=== PATIENT | female | born 1995 | race Caucasian/White ===

== ENCOUNTER 2016-10-04 18:45 | Emergency (ER) | payer BC ==
[2016-10-04 19:09] VITALS: BP 105/78
[2016-10-04] MEDS ORDERED: Albuterol HFA INHALER* 8 gm MDI INH ONE (19:21)
--- NOTE | 2016-10-04 19:26 | UC ---
Respiratory Complaint HPI - History of Current Complaint Chief Complaint: UCGeneralIllness Stated Complaint: THROAT/COUGH Time Seen by Provider: 10/04/16 19:08 Hx Last Menstrual Period: 07/2016-denies being - Allergies/Home Medications Allergies/Adverse Reactions: Allergies Allergy/AdvReac Type Severity Reaction Status Date / Time No Known Allergies Allergy Verified 10/04/16 19:03 Home Medications: Home Medications Escitalopram (NF) [Lexapro 20 mg (NF)] 20 mg PO DAILY 10/04/16 [History Confirmed 10/04/16] PMH/Surg Hx/FS Hx/Imm Hx Previously Healthy: Yes - Surgical History Surgical History: None - Family History Known Family History: Positive: Diabetes - Social History Alcohol Use: Occasionally Substance Use Type: None Smoking Status (MU): Never Smoked Tobacco Review of Systems Constitutional: Negative Skin: Negative Eyes: Negative ENT: Sore Throat, Ear Ache, Nasal Discharge, Sinus Congestion Respiratory: Shortness Of Breath, Cough Cardiovascular: Negative Gastrointestinal: Negative Genitourinary: Negative Motor: Negative Neurovascular: Negative Musculoskeletal: Negative Neurological: Negative Psychological: Negative All Other Systems Reviewed And Are Negative: Yes Physical Exam Triage Information Reviewed: Yes Appearance: Well-Nourished, Ill-Appearing, Pain Distress Vital Signs: Initial Vital Signs Temp 97.9 F 10/04/16 18:56 Pulse 85 10/04/16 18:56 Resp 16 10/04/16 18:56 BP 105/78 10/04/16 18:56 Pulse Ox 97 10/04/16 18:56 Vital Signs Reviewed: Yes Eye Exam: Normal ENT: Positive: Pharyngeal erythema, TM bulging Dental Exam: Normal Neck exam: Normal Respiratory: Positive: Chest non-tender, No respiratory distress, No accessory muscle use, Wheezing, Inspiration Cardiovascular Exam: Normal Cardiovascular: Positive: RRR, No Murmur, Pulses Normal Abdominal Exam: Normal Abdomen Description: Positive: Nontender, No Organomegaly, Soft Bowel Sounds: Positive: Present Musculoskeletal Exam: Normal Musculoskeletal: Positive: Strength Intact, ROM Intact, No Edema Neurological Exam: Normal Neurological: Positive: Alert, Muscle Tone Normal Psychological Exam: Normal Skin Exam: Normal UC Diagnostic Evaluation - Laboratory O2 Sat by Pulse Oximetry: 97 Respiratory Course/Dx - Course Course Of Treatment: hx obtained, exam performed ,meds reviewed, treated for rhinosinusitis and bronchospasm - Differential Dx/Diagnosis Differential Diagnosis/HQI/PQRI: Asthma, Bronchitis, Exacerbation Of COPD, Laryngitis, Sinusitis Provider Diagnoses: sinusitis. bronchospasm Discharge - Discharge Plan Condition: Stable Disposition: HOME Prescriptions: predniSONE TAB* [Deltasone TAB*] 40 mg PO DAILY #14 tab Patient Education Materials: Bronchospasm (ED) Additional Instructions: 1. take the medication as prescribed. 2. increase fluid intake and get plenty of rest 3. Follow up with any increase in symptoms
== END 2016-10-04 19:36 | disposition home or self-care (01) ==
LOC: UCCORT 18:45
DX: J32.9 Chronic sinusitis, unspecified (principal); J98.01 Acute bronchospasm
CPT/HCPCS: 99212; A9270-GY; G0463

== ENCOUNTER 2017-03-11 14:41 | Emergency (ER) | payer BC ==
[2017-03-11 15:27] VITALS: BP 125/76
--- NOTE | 2017-03-11 15:41 | UC ---
Throat Pain/Nasal David HPI - HPI Summary HPI Summary: 21 YEAR OLD FEMALE PRESENTS WITH COMPLAINS SORE THROAT AND COUGH. - History of Current Complaint Chief Complaint: UCGeneralIllness Stated Complaint: SORE THROAT Time Seen by Provider: 03/11/17 15:41 Hx Obtained From: Patient Hx Last Menstrual Period: 3 WEEKS AGO Onset/Duration: Sudden Onset Severity: Moderate Cough: Nonproductive Associated Signs & Symptoms: Positive: Dysphagia - Allergies/Home Medications Allergies/Adverse Reactions: Allergies Allergy/AdvReac Type Severity Reaction Status Date / Time No Known Allergies Allergy Verified 03/11/17 15:26 PMH/Surg Hx/FS Hx/Imm Hx Previously Healthy: Yes - Surgical History Surgical History: None - Family History Known Family History: Positive: Diabetes - Social History Alcohol Use: Occasionally Substance Use Type: None Smoking Status (MU): Never Smoked Tobacco - Immunization History Most Recent Influenza Vaccination: NOT CURRENT Review of Systems Constitutional: Negative Skin: Negative Eyes: Negative ENT: Sore Throat, Nasal Discharge, Sinus Congestion, Sinus Pain/Tenderness Respiratory: Negative Cardiovascular: Negative Gastrointestinal: Negative Genitourinary: Negative Motor: Negative Neurovascular: Negative Musculoskeletal: Negative Neurological: Negative Psychological: Negative All Other Systems Reviewed And Are Negative: Yes Physical Exam Triage Information Reviewed: Yes Vital Signs: Initial Vital Signs Temp 36.3 C 03/11/17 15:23 Pulse 87 03/11/17 15:23 Resp 18 03/11/17 15:23 BP 125/76 03/11/17 15:23 Pulse Ox 97 03/11/17 15:23 Vital Signs Reviewed: Yes Eye Exam: Normal ENT: Positive: Nasal congestion, Nasal drainage Dental Exam: Normal Neck exam: Normal Neck: Positive: 1 Respiratory Exam: Normal Cardiovascular Exam: Normal Abdominal Exam: Normal Musculoskeletal Exam: Normal Neurological Exam: Normal Psychological Exam: Normal Skin Exam: Normal Throat Pain/Nasal Course/Dx - Differential Dx/Diagnosis Provider Diagnoses: PHARYNGITIS. COUGH Discharge - Discharge Plan Condition: Stable Disposition: HOME Prescriptions: Amoxicillin PO (*) [Amoxicillin 500 MG CAP*] 500 mg PO TID #30 cap LoraTADine TAB(NF) [Claritin 10 MG TAB(NF)] 10 mg PO DAILY #30 tab Magic M W2 Taj/Maal/Nyst/Lido* 5 ml SWISH SPIT QID PRN #120 ml PRN Reason: Pain Methylprednisolone [Medrol Dosepak 4 MG*] 4 mg PO .SEE SELENA INSTRUCTION #21 tab Patient Education Materials: Pharyngitis (ED) Referrals: Hector Moses DO [Primary Care Provider] -
== END 2017-03-11 15:59 | disposition home or self-care (01) ==
LOC: UCCORT 14:41
DX: J02.9 Acute pharyngitis, unspecified (principal); R05 Cough
CPT/HCPCS: 87651; 99212; G0463

== ENCOUNTER 2017-07-04 11:53 | Emergency (ER) | payer BC ==
[2017-07-04 12:06] VITALS: BP 137/90
[2017-07-04] MEDS ORDERED: Ibuprofen TAB* 600 MG PO ONE (12:15)
--- NOTE | 2017-07-04 12:24 | UC ---
Lower Extremity/Ankle HPI - HPI Summary HPI Summary: 21 year old female with ankle pain. right ankle last night at 11 pm , missed last step fell on concrete. Ankle bent behind her. Bruised on outside of ankle and along arch. Denies LOC or hitting head, fell on wrists. Denies injury to wrist or hands. fell 2 steps and did not his head. [ End ] - History of Current Complaint Chief Complaint: UCLowerExtremity Stated Complaint: ANKLE INJURY Time Seen by Provider: 07/04/17 12:07 Hx Obtained From: Patient Hx Last Menstrual Period: 05/18/17 has PCOS cycle varies Onset/Duration: Sudden Onset Severity Initially: Moderate Severity Currently: Severe Pain Intensity: 10 Aggravating Factor(s): Standing Alleviating Factor(s): Rest Able to Bear Weight: Yes - Allergies/Home Medications Allergies/Adverse Reactions: Allergies Allergy/AdvReac Type Severity Reaction Status Date / Time No Known Allergies Allergy Verified 07/04/17 12:06 PMH/Surg Hx/FS Hx/Imm Hx Previously Healthy: Yes - Surgical History Surgical History: None Surgery Procedure, Year, and Place: denies - Family History Known Family History: Positive: Diabetes - Social History Lives: Dormitory/Roommates Alcohol Use: Occasionally Substance Use Type: None Smoking Status (MU): Light Every Day Tobacco Smoker Length of Time of Smoking/Using Tobacco: 1 year Have You Smoked in the Last Year: Yes - Immunization History Most Recent Influenza Vaccination: NOT CURRENT Review of Systems Musculoskeletal: Arthralgia, Decreased ROM Is Patient Immunocompromised?: No All Other Systems Reviewed And Are Negative: Yes Physical Exam Triage Information Reviewed: Yes Appearance: Well-Appearing, Pain Distress - mild Vital Signs: Initial Vital Signs Temp 97.9 F 07/04/17 12:00 Pulse 98 07/04/17 12:00 Resp 18 07/04/17 12:00 BP 137/90 07/04/17 12:00 Pulse Ox 99 07/04/17 12:00 Vital Signs Reviewed: Yes Eye Exam: Normal Respiratory Exam: Normal Cardiovascular Exam: Normal Musculoskeletal: Positive: Strength Limited @, ROM Limited @, Edema @ - right ankle mild swelling and moderate tenderness to palpation medial/lateral malleolus and forefoot. mild abrasion lateral ankle that is superficial. cap refill < 3 sec. brisk pulses dorsalis pedis. no ecchymosis Lower Extremity Course/Dx - Course Course Of Treatment: neg xray. gel splint. no work for a few days. showed her exercses to start today or tomorrow - Differential Dx/Diagnosis Differential Diagnosis/HQI/PQRI: Fracture (Closed), Sprain, Strain Provider Diagnoses: right ankle sprain Discharge - Sign-Out/Discharge Documenting (check all that apply): Discharge/Admit/Transfer - Discharge Plan Condition: Good Disposition: HOME Patient Education Materials: Ankle Sprain (ED) Forms: *Work Release Referrals: Hector Moses DO [Primary Care Provider] - 3 Days Additional Instructions: your xray shows no fracture / broken bones today . - Billing Disposition and Condition Condition: GOOD Disposition: HOME
--- NOTE | 2017-07-04 12:45 | RAD ---
Indication: Dorsal RIGHT foot and plantar arch pain post fall. Comparison: No relevant prior exams available on the [facility] PACS for comparison. Technique: AP and lateral views RIGHT foot. AP, mortise, lateral, and oblique views of the RIGHT ankle. Report: Negative for fracture or malalignment at the ankle or foot. Small bone island at the caudal margin of the lateral malleolus without concern. Os tibiale externum accessory ossicle. Unremarkable soft tissue contours. IMPRESSION: Negative radiographic exam of the RIGHT ankle and foot.
--- NOTE | 2017-07-04 12:45 | RAD ---
Indication: Dorsal RIGHT foot and plantar arch pain post fall. Comparison: No relevant prior exams available on the [facility] [place] for [place]. Technique: AP and lateral views RIGHT foot. AP, mortise, lateral, and oblique views of the RIGHT ankle. Report: Negative for fracture or malalignment at the ankle or foot. Small bone island at the caudal margin of the lateral malleolus without concern. Os tibiale externum accessory ossicle. Unremarkable soft tissue contours. IMPRESSION: Negative radiographic exam of the RIGHT ankle and foot.
== END 2017-07-04 13:00 | disposition home or self-care (01) ==
LOC: UCEAST 11:53
DX: S93.401A Sprain of unspecified ligament of right ankle, initial encounter (principal); S90.511A Abrasion, right ankle, initial encounter; W10.9XXA Fall (on) (from) unspecified stairs and steps, initial encounter; Y93.9 Activity, unspecified; Y92.9 Unspecified place or not applicable; F17.210 Nicotine dependence, cigarettes, uncomplicated
CPT/HCPCS: 99213; A9270-GY; G0463

== ENCOUNTER 2018-04-07 21:58 | Emergency (ER) | payer BC ==
[2018-04-07] MEDS ORDERED: Ondansetron ODT TAB* 4 MG PO ONE (22:21)
--- NOTE | 2018-04-07 22:22 | ED ---
Influenza-Like Illness - HPI Summary HPI Summary: 22-year-old female presents with generalized muscle aches and cough for the past days. She admits to sore throat. Admits to sinus congestion and a headache. She admits to generalized muscle aches. She notes nausea but denies any vomiting or diarrhea. states she has felt weak. Denies any urinary symptoms. States she has history of strep. States it felt like strep initally and then she developed a muscle aches. No one else is sick. Has no medical conditions. - History of Current Complaint Chief Complaint: EDFluSymptoms Time Seen by Provider: 04/07/18 22:17 - Allergy/Home Medications Allergies/Adverse Reactions: Allergies Allergy/AdvReac Type Severity Reaction Status Date / Time No Known Allergies Allergy Verified 04/07/18 22:25 PMH/Surg Hx/FS Hx/Imm Hx Endocrine/Hematology History: Denies: Hx Diabetes, Hx Thyroid Disease Cardiovascular History: Denies: Hx Hypertension, Hx Pacemaker/ICD Respiratory History: Denies: Hx Asthma, Hx Chronic Obstructive Pulmonary Disease (COPD) GI History: Denies: Hx Ulcer History: Denies: Hx Renal Disease Sensory History: Denies: Hx Hearing Aid Psychiatric History: Denies: Hx Panic Disorder - Surgical History Surgery Procedure, Year, and Place: denies Infectious Disease History: No Infectious Disease History: Denies: Hx Hepatitis, Hx Human Immunodeficiency Virus (HIV), Traveled Outside the [place] in Last 30 Days - Family History Known Family History: Positive: Diabetes - Social History Alcohol Use: Occasionally Substance Use Type: Reports: None Smoking Status (MU): Light Every Day Tobacco Smoker Length of Time of Smoking/Using Tobacco: 1 year Have You Smoked in the Last Year: Yes Review of Systems Negative: Fever Positive: Sore Throat, Nasal Discharge Negative: Chest Pain Positive: Cough. Negative: Shortness Of Breath Positive: Abdominal Pain, Nausea. Negative: Vomiting, Diarrhea Positive: Myalgia - generalized Positive: Headache All Other Systems Reviewed And Are Negative: Yes Physical Exam Triage Information Reviewed: Yes Vital Signs On Initial Exam: Initial Vitals Temp Pulse Resp BP Pulse Ox 96.5 F 93 16 153/92 96 04/07/18 22:05 04/07/18 22:05 04/07/18 22:05 04/07/18 22:05 04/07/18 22:05 Vital Signs Reviewed: Yes Appearance: Positive: Well-Appearing Skin: Positive: Warm, Dry Head/Face: Positive: Normal Head/Face Inspection Eyes: Positive: Normal, EOMI, GERALD, Conjunctiva Clear ENT: Positive: Pharyngeal erythema, TMs normal, Uvula midline, Other - soft palate symmetric. Negative: Tonsillar swelling, Tonsillar exudate, Trismus, Muffled voice Respiratory/Lung Sounds: Positive: Clear to Auscultation, Breath Sounds Present Cardiovascular: Positive: Normal, RRR Abdomen Description: Positive: Nontender, Soft Bowel Sounds: Positive: Present Musculoskeletal: Positive: Normal Neurological: Positive: Normal Psychiatric: Positive: Normal Diagnostics - Vital Signs Vital Signs Temp Pulse Resp BP Pulse Ox 04/07/18 22:05 96.5 F 93 16 153/92 96 - Laboratory Lab Statement: Any lab studies that have been ordered have been reviewed, and results considered in the medical decision making process. Flu Symptom Course/Dx - Course Course Of Treatment: 22-year-old female presents with generalized muscle aches and cough for the past days. She admits to sore throat. Admits to sinus congestion and a headache. She admits to generalized muscle aches. She notes nausea but denies any vomiting or diarrhea. states she has felt weak. Denies any urinary symptoms. States she has history of strep. States it felt like strep initally and then she developed a muscle aches. No one else is sick. Has no medical conditions. On exam pharynx erythematous. Uvula midline. Lungs clear to auscultation. Strep negative. Flu negative. explained likely viral and will treat supporatively. Patient understands agrees with plan. - Diagnoses Differential Diagnosis/HQI/PQRI: Positive: Influenza, Pneumonia, Upper Respiratory Infection Provider Diagnoses: Upper respiratory infection Discharge - Sign-Out/Discharge Documenting (check all that apply): Patient Departure Patient Received Moderate/Deep Sedation with Procedure: No - Discharge Plan Condition: Good Disposition: HOME Patient Education Materials: Upper Respiratory Infection (ED) Forms: *Work Release Referrals: Hector Moses DO [Primary Care Provider] - Additional Instructions: Take Tylenol or ibuprofen for pain every 6 hours Use saline spray in nose as much as needed for nasal congestion Can gargle salt water Can use cough drops or products such as cloraseptic spray Return to ED if develop any new or worsening symptoms - Billing Disposition and Condition Condition: GOOD Disposition: Home
[2018-04-07 22:58] LABS: Influenza A Molecular NEGATIVE (Negative); Influenza B Molecular NEGATIVE (Negative)
[2018-04-07 23:15] VITALS: BP 136/85
== END 2018-04-07 23:14 | disposition home or self-care (01) ==
LOC: ED 21:58
DX: J06.9 Acute upper respiratory infection, unspecified (principal); F17.200 Nicotine dependence, unspecified, uncomplicated
CPT/HCPCS: 87651; 99282; A9270-GY

== ENCOUNTER 2018-06-12 11:12 | Emergency (ER) | payer BC ==
--- OUTSIDE RECORDS SUMMARY | 2018-06-12 11:16 | XMS REPORT | Continuity of Care Document ---
:1995 External Reference #:[id number] Author Name Hector Moses D.O. Address [address] [place] [id number] Care Team Providers Name Role Phone HCP given Primary Care Physician Unavailable Payers Date Identification Numbers Payment Provider Subscriber Effective: 2012 Policy Number: [id number] [employer] Ind/Ppo/Hmo/Pos [employer]if [employer] Name: [address] [id number] PayID: [id number] [place] [address] Advance Directives Description No Information Available Problems Date Description Provider Status Onset: 10/26/2014 Acne Hector Moses D.O. 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 Active Onset: 06/10/2016 Malaise and fatigue Hector Moses D.O. Active Onset: 11/27/2017 Generalized anxiety disorder Hector Moses D.O. Active Family History Date Family Member(s) Observation Comments Siblings 3 1 brother and 2 sisters Social History Type Date Description Comments Sex Unknown Education Highest level completed, 12th grade Work Status Currently Working Tobacco Use Start: Unknown current cigarette 1 pack per week smoker Smoking Status Reviewed: 05/13/18 current cigarette 1 pack per week smoker ETOH Use Rarely consumes alcohol Tobacco Use Start: Unknown Patient is a current currently 2cig/day smoker, smokes every day Recreational Drug Use Cannabis Exercise Type/Frequency Exercises sporadically Sun Exposure Uses sunscreen Seat Belt/Car Seat Yes Contraceptive Methods None # Partners in a Lifetime none Allergies, Adverse Reactions, Alerts Description No Known Drug Allergies Medications Medication Date Status Form Strength Qnty SIG Indications Ordering Provider Cetirizine HCL 05/13/ Active Tablets 10mg 90tabs 1 by mouth L50.1 Aurelia, 2019 every day Olivia Young Aripiprazole 05/13/ Active Tablets 2mg 90tabs 1 by mouth F33.3 Aurelia, 2019 every day Sophia YoungOGarcia Amitriptyline 04/15/ Active Tablets 10mg 90tabs 1 by mouth F41.1 Aurelia, HCL 2019 every night Hector, at bedtime D.O. Prazosin HCL 11/27/ Active Capsules 1mg 30caps 1 by mouth F51.5 Aurelia 2017 at bed time Hector, to help with D.OGarcia nightmares Buspirone HCL 07/10/ Active Tablets 15mg 270tab take 1 F43.23 Aurelia 2016 s tablet by Hector mouth three D.O. times daily for anxiety F41.1 Escitalopram 04/24/2016 Active Tablets 20mg 90tabs 1 by mouth F43.23 Aurelia, every day Olivia Young F41.1 Melatonin 02/25 Hx Capsules 1mg 90ca 1 tab 1 hour prior G47. Aurelia ps to sleep. 26 Olivia Young - 05/12 Modafinil 02/25 Hx Tablets 200mg 14ta 1 by mouth 1 hour G47. Aurelia bs prior to overnight 26 Sophia YoungO. - shifts 03/15 Famotidine 04/13 Hx Tablets 40mg 60ta take 1 tablet by R12 Aurelia bs mouth 2 times per Choco Young.O. - day for 11/26 gastroesophageal reflux disease as needed Ondansetron HCL 11/05 Hx Tablets 4mg 14ta 1 by mouth three A09 Aurelia bs times a day as Choco Young.O. - needed for nausea 11/10 Vitamin D3 06/26 Hx Capsules 5000Un take on capsule by it mouth every day or 7 - tablets once a week 11/26 Cyclobenzaprine HCL 04/24 Hx Tablets 5mg 90ta 1 tab by mouth every M54. Aurelia bs night for back pain. 2 Kalani Young. - will make you drowsy 08/11 Prazosin HCL 04/24 Hx Capsules 1mg 30ca 1 by mouth at bed F51. Aurelia ps time to help with 5 Kalani Young. - nightmares 05/01 Magox 400 02/07 Hx Tablets 400(24 90ta 1 tablets every R51 [facility] 1.3mg) bs night at bedtime as Choco Young.O. - mg directed 04/03 Amitriptyline HCL 02/07 Hx Tablets 10mg 60ta 2 by mouth every F43. [facility] bs night at bedtime for 23 Sophia YoungO. - reduced freq 11/04 headaches and sleep Buspirone HCL 02/07 Hx Tablets 10mg 180t 1 by mouth two times F43. luis abs a day scheduled to 23 Choco Young.O. - reduce anxiety ok to 07/10 take a 3rd dose daily as needed for panic attack Escitalopram Oxalate 12/26 Hx Tablets 10mg 90ta 1 by mouth every day F43. Gus bs 23 Hector D.O. - 04/24 Clindamycin 12/26 Hx Gel 1-5% 150g use two times a day L70. Marcy Rodriguez-Benzoshelton m 0 FELIPA Alford - 05/27 Minocycline HCL 12/14 Hx Capsules 100mg 60ca 1 by mouth twice a L70. Michael ps day, may reduce to 0 FELIPA Alford once a day after 2-3 04/23 months if there is improvement Flagyl 12/07 Hx Tablets 500mg 14ta 1 tab po bid x7 days Michael bs FELIPA Alford - 12/14 Diflucan 12/04 Hx Tablets 150mg 1tab 1 tab by mouth once N76. Michael s 0 FELIPA Alford - 12/05 Adapalene 11/13 Hx Cream 0.1% 135g apply to affected L70. Michael m areas QHS 0 FELIPA Alford - 12/10 Minocycline HCL ER 11/13 Hx Tablets ER 90mg 90ta 1 tab po daily L70. Michael 24HR bs 0 FELIPA Alford - 12/14 Previfem 08/08 Hx Tablets 0.25-3 28ta take 1 tablet by Z30. luis 5mg-mc bs mouth daily for 28 09 Hector, D.O. - g days for 10/13 Cyclobenzaprine HCL 08/08 Hx Tablets 5mg 90ta 1 tab by mouth tid G44. pramod bs prn 209 FELIPA Alford - 03/12 Buspirone HCL 07/06 Hx Tablets 10mg 180t 1 by mouth two times F43. Aurelia abs a day 23 Hector, D.O. - 12/26 Vitamin D3 04/21 Hx Tablets 5000Un 90ta 1 tab by mouth every E55. luis it bs day or 7 tabs once a 9 Hector, D.O. - week 03/12 Vitamin B-12 04/21 Hx Tablets Sub 1000mc 270t 1 sl three times a E53. luis g abs day ok to change 8 Hector, D.O. - dose to 500mcg or 03/12 5000mcg based on availablility Buspirone HCL 03/31 Hx Tablets 7.5mg 180t 1 cap by mouth twice F41. Gus abs a day 9 Hectro, D.O. - 07/06 Doxycycline Hyclate 10/26 Hx Capsules 100mg 60ca 1 PO daily for 4 706. Aurelia ps months 1 Hector, D.O. - 02/23 No Active 03/29 Hx Unknown Medications /2014 - 03/29 Benzaclin With Pump 03/29 Hx Gel 1-5% 150g use two times a day L70. Aurelia m 0 Hector, D.O. - 12/26 Medications Administered in Office Medication Date Status Form Strength Qnty SIG Indications Ordering Provider TB Intradermal Administered Injection Parth Moses 014 Hector, D.O. Immunizations CPT Code Status Date Vaccine Lot # [id number] Given 11/27/2017 Influenza Virus Vaccine, Quadrivalent, Split, [id number] Preservative Free 87672 Given 03/20/2017 Influenza Virus Vaccine, Quadrivalent, Split, Preservative Free 58306 Given 04/24/2016 Gardasil 9 HPV vaccine; Nonavalent 3 [place] [id number] [place] [address] Given 11/14/2015 Gardasil 9 HPV vaccine; Nonavalent 3 Dose Schedule [id number] Im [address] Given 07/07/2015 Adacel or Boostrix, TDaP [id number] 92933 Given 07/07/2015 Gardasil 9 HPV vaccine; Nonavalent 3 Dose Schedule [id number] Im [address] Given 01/18/2014 Influenza Virus Vaccine, Quadrivalent, Split, [id number] Preservative Free 64275 Given 03/14/2013 Flu, Split Virus 3Yrs [id number] 65011 Given 07/25/2009 Menactra Menningitis Vaccine 80598 Given 10/29/1998 Poliomyelitis Immunization 82178 Given 10/29/1998 MMR Virus Immunization 95064 Given 10/29/1998 DTP Immunization 17753 Given 07/16/1995 MMR Virus Immunization 97837 Given 07/16/1995 Oral Poliovirus Immunization 93851 Given 07/16/1995 DTP-Hib (Tetramune) 01432 Given 07/29/1994 Hep B Immunization, Ped/Adolescent To 11 Yrs 61074 Given 05/05/1994 DTP Immunization 48373 Given 05/05/1994 Hib 4 Dose, Acthib 31494 Given 02/24/1994 Oral Poliovirus Immunization 51824 Given 02/24/1994 DTP Immunization 92124 Given 02/24/1994 Hib 4 Dose, Acthib 56837 Given 1993 Oral Poliovirus Immunization 11692 Given 1993 DTP Immunization 71148 Given 1993 Hib 4 Dose, Acthib 47890 Given 1993 Hep B Immunization, Ped/Adolescent To 11 Yrs 53783 Given 1993 Hep B Immunization, Ped/Adolescent To 11 Yrs Vital Signs Date Vital Result Comment 05/13/2018 2:47pm BP Systolic 132 mmHg BP Diastolic 76 mmHg Weight 247.00 lb 04/15/2018 1:35pm BP Systolic 124 mmHg BP Diastolic 80 mmHg Height 68 inches 5'8" Weight 252.00 lb BMI (Body Mass Index) 38.3 kg/m2 02/25/2018 8:36am BP Systolic 138 mmHg BP Diastolic 70 mmHg Weight 264.00 lb 11/27/2017 8:36am BP Systolic 143 mmHg BP Diastolic 66 mmHg Weight 261.00 lb 04/13/2017 11:08am BP Systolic 134 mmHg over sleeve BP Diastolic 82 mmHg over sleeve Height 68.75 inches 5'8.75" Weight 270.00 lb BMI (Body Mass Index) 40.2 kg/m2 12/18/2016 9:11am BP Systolic 128 mmHg BP Diastolic 80 mmHg Body Temperature 98.2 F Weight 265.00 lb 11/05/2016 4:44pm BP Systolic 128 mmHg BP Diastolic 75 mmHg Body Temperature 98.5 F Weight 265.00 lb 08/29/2016 3:05pm BP Systolic 132 mmHg BP Diastolic 72 mmHg Weight 265.00 lb 08/11/2016 12:56pm BP Systolic 132 mmHg BP Diastolic 80 mmHg Weight 263.00 lb 07/10/2016 9:36am BP Systolic 126 mmHg BP Diastolic 86 mmHg 06/10/2016 11:32am BP Systolic 120 mmHg BP Diastolic 80 mmHg Weight 260.00 lb per pt 04/24/2016 1:34pm BP Systolic 142 mmHg BP Diastolic 66 mmHg Weight 261.00 lb 03/13/2016 4:42pm BP Systolic 132 mmHg BP Diastolic 80 mmHg Weight 253.00 lb with sneakers 02/08/2016 4:34pm BP Systolic 130 mmHg BP Diastolic 80 mmHg Height 68 inches 5'8" Weight 247.00 lb BMI (Body Mass Index) 37.6 kg/m2 12/27/2015 4:03pm BP Systolic 138 mmHg BP Diastolic 72 mmHg 12/05/2015 5:13pm BP Systolic 118 mmHg BP Diastolic 70 mmHg 11/14/2015 1:20pm BP Systolic 124 mmHg BP Diastolic 72 mmHg Weight 239.00 lb 08/09/2015 4:32pm BP Systolic 124 mmHg BP Diastolic 76 mmHg Height 68 inches 5'8" Weight 244.00 lb BMI (Body Mass Index) 37.1 kg/m2 07/07/2015 8:52am BP Systolic 126 mmHg BP Diastolic 82 mmHg Height 68 inches 5'8" Weight 238.00 lb BMI (Body Mass Index) 36.2 kg/m2 04/21/2015 10:08am BP Systolic 136 mmHg BP Diastolic 70 mmHg Weight 232.00 lb 03/31/2015 9:49am BP Systolic 138 mmHg BP Diastolic 80 mmHg Weight 235.00 lb 10/26/2014 8:45am BP Systolic 120 mmHg BP Diastolic 60 mmHg Height 68 inches 5'8" 03/29/2014 1:25pm BP Systolic 110 mmHg BP Diastolic 60 mmHg Height 68 inches 5'8" Weight 223.00 lb BMI (Body Mass Index) 33.9 kg/m2 Results Test Date Facility Test Result H/L Range Note HIV 1/2 Ag/AB 04/15/2018 [facility] Hiv1/2 Ag/Ab Negative Negative 1 Screen,W/Reflex, [phone] Screen,w/Refle Plasma x,P Laboratory test 04/15/2018 [facility] Syphillis Igg <pending> finding [phone] W/Reflex RPR Laboratory test 04/15/2018 [facility] Hepatitis C <pending> finding [phone] Antibody Laboratory test 04/15/2018 [facility] TSH (Thyroid 0.61 mcIU/mL N 0.34-5.60 finding [phone] Stim Horm) Hemoglobin A1c (Glyco HGB) 5.2 % N 4.0-5.6 2 Magnesium 2.2 mg/dL N 1.9-2.7 Vitamin B12 608 pg/mL N 180-914 3 Comp Metabolic Panel 04/15/2018 [facility] Sodium 140 mmol/L N 135- 145 [phone] Potassium 3.9 mmol/L N 3.5-5.0 Chloride 102 mmol/L N 101-111 Co2 Carbon Dioxide 31 mmol/L N 22-32 Anion Gap 7 mmol/L N 2-11 Glucose 85 mg/dL N 70-100 Blood Urea Nitrogen 14 mg/dL N 6-24 Creatinine 1.02 mg/dL High 0.51-0.95 BUN/Creatinine Ratio 13.7 N 8-20 Calcium 9.7 mg/dL N 8.6-10.3 Total Protein 7.7 g/dL N 6.4-8.9 Albumin 4.2 g/dL N 3.2-5.2 Globulin 3.5 g/dL N 2-4 Albumin/Globulin Ratio 1.2 N 1-3 Total Bilirubin 0.50 mg/dL N 0.2-1.0 Alkaline Phosphatase 108 U/L High 34-104 Alt 27 U/L N 7-52 Ast 20 U/L N 13-39 Egfr Non- 66.6 >60 Egfr 80.6 >60 4 CBC Auto Diff 04/15/2018 [facility] White Blood Count 8.2 10^3/uL N 3.5-10.8 [phone] Red Blood Count 4.68 10^6/uL N 4.00-5.40 Hemoglobin 13.3 g/dL N 12.0-16.0 Hematocrit 40 % N 35-47 Mean Corpuscular Volume 85 fL N 80-97 Mean Corpuscular Hemoglobin 29 pg N 27-31 Mean Corpuscular HGB Conc 34 g/dL N 31-36 Red Cell Distribution Width 15 % N 10.5-15 Platelet Count 367 10^3/uL N 150-450 Mean Platelet Volume 8.7 fL N 7.4-10.4 Abs Neutrophils 4.2 10^3/uL N 1.5-7.7 Abs Lymphocytes 3.2 10^3/uL N 1.0-4.8 Abs Monocytes 0.6 10^3/uL N 0-0.8 Abs Eosinophils 0.2 10^3/uL N 0-0.6 Abs Basophils 0.1 10^3/uL N 0-0.2 Abs Nucleated RBC 0 10^3/uL Granulocyte % 51.3 % Lymphocyte % 38.5 % Monocyte % 6.9 % Eosinophil % 2.3 % Basophil % 1.0 % Nucleated Red Blood Cells % 0.1 Rapid Influenza A 04/13/2018 [facility] Influenza A NEGATIVE Negative 5 & B Molecular [phone] Molecular Influenza B Molecular NEGATIVE Negative Poc Urinalysis 04/13/2018 [facility] Poc Glucose, Urine Negative Negative [phone] Poc Bilirubin, Urine Negative Negative Poc Ketone, Urine Negative Negative Poc Specific [place], Urine >=1.030 N 1.010-1.030 Poc Blood, Urine 3+ Abnormal Negative Poc pH, Urine 6.0 N 5-9 Poc Protein, Urine Trace Abnormal Negative Poc Urobilinogen, Urine 1.0 Negative Poc Nitrite, Urine Negative Negative Poc Leukocytes, Urine Negative Negative Poc Color, Urine Other Poc Clarity, Urine Slightly Cloudy 6 Laboratory test 04/13/2018 [facility] Rapid Strep Negative Negative 7 finding [phone] Molecular Rapid Influenza A & 04/07/2018 [facility] Influenza A NEGATIVE Negative 8 B Molecular [phone] Molecular Influenza B Molecular NEGATIVE Negative Laboratory test 04/07/2018 [facility] Rapid Strep Negative Negative 9 finding [phone] Molecular Laboratory test 04/07/2018 [facility] Rapid Influenza SEE RESULT 10 finding [phone] A B Antigen BELOW Rapid Strep A Request SEE RESULT BELOW 11 Laboratory test 06/27/2017 [facility]. Troponin-I < 0.015 12, 13 finding LABORATORY ng/mL [phone] Basic Metabolic 06/27/2017 [facility]. Glucose 85 mg/dL N 74- 106 Panel LABORATORY [phone] BUN 9 mg/dL N 7-18 Creatinine 1.0 mg/dL N 0.6-1.3 Glom Filtration Rate, Estimate >60 mL/min >60 If >60 mL/min >60 14 BUN/Creat 9.0 ratio Sodium 141 mmol/L N 136-145 Potassium 3.7 mmol/L N 3.5-5.1 Chloride 107 mmol/L N 98-107 Carbon Dioxide 29 mmol/L N 21-32 Anion Gap 5 mEq/L Low 8-16 Calcium 8.9 mg/dL N 8.5-10.1 CBS W/Automated 06/27/2017 [facility]. White Blood 8.1 K/uL N 3.1-10.7 Diff LABORATORY Count [phone] Red Blood Count 4.42 M/uL N 3.90-5.40 Hemoglobin 13.4 gm/dL N 11.6-15.8 Hematocrit 40.1 % N 36.0-46.1 Mean Cell Volume 90.7 fl N 80.9-99.0 Mean Corpuscular HGB 30.3 pg N 25.9-32.7 Mean Corpuscular HGB Conc 33.4 g/dL N 30.8-34.3 Platelet Count 251 K/uL N 155-360 Red Cell Distri Width SD 47.9 fl High 3-47 Red Cell Distri Width %CV 14.9 % High 11.7-14.4 Mean Platelet Volume 10.9 fL N 8.9-12.4 Neut% 56.0 % N 40.4-72.8 Lymph % 32.5 % N 20.0-42.0 [place] % 7.6 % N 4.3-13.2 Eo% 3.5 % N 0.0-6.6 Bas% 0.4 % N 0.0-1.1 Neut# 4.51 K/uL N 1.8-7.0 Lymph # 2.62 K/uL N 1.0-4.0 [place] # 0.61 K/uL N 0.3-0.9 Eos # 0.28 K/uL N 0.0-0.5 Baso # 0.03 K/uL N 0.0-0.1 Drugs Of 06/26/2017 [facility]. Amphetamines Negative 15 Abuse-Urine Screen LABORATORY (Urine) 7 [phone] Barbiturates (Urine) Negative Benzodiazepines (Urine) Negative Cannabinoids (Urine) Negative Cocaine Metabolite (Urine) Negative Methadone (Urine) Negative Opiates (Urine) Negative Urine Cutoffs * 16 CBS W/Automated 06/26/2017 [facility]. White Blood 9.2 K/uL N 3.1-10.7 Diff LABORATORY Count [phone] Red Blood Count 4.79 M/uL N 3.90-5.40 Hemoglobin 14.8 gm/dL N 11.6-15.8 Hematocrit 42.1 % N 36.0-46.1 Mean Cell Volume 87.9 fl N 80.9-99.0 Mean Corpuscular HGB 30.9 pg N 25.9-32.7 Mean Corpuscular HGB Conc 35.2 g/dL High 30.8-34.3 Platelet Count 276 K/uL N 155-360 Red Cell Distri Width SD 46.7 fl N 3-47 Red Cell Distri Width %CV 14.9 % High 11.7-14.4 Mean Platelet Volume 10.8 fL N 8.9-12.4 Neut% 66.9 % N 40.4-72.8 Lymph % 22.3 % N 20.0-42.0 [place] % 9.2 % N 4.3-13.2 Eo% 1.1 % N 0.0-6.6 Bas% 0.5 % N 0.0-1.1 Neut# 6.12 K/uL N 1.8-7.0 Lymph # 2.04 K/uL N 1.0-4.0 [place] # 0.84 K/uL N 0.3-0.9 Eos # 0.10 K/uL N 0.0-0.5 Baso # 0.05 K/uL N 0.0-0.1 Laboratory test 06/26/2017 [facility] Salicylate 4.9 mg/dL N 2.8-20.0 17 finding LABORATORY [phone] Ua RFX Micro & 06/26/2017 [facility] Urine Color YELLOW Yellow Culture II LABORATORY [phone] Urine Clarity CLEAR Clear Urine Glucose - Dipstick NEGATIVE mg/dL Negative Urine Bilirubin - Dipstick NEGATIVE Negative Urine Ketone NEGATIVE mg/dL Negative Urine Specific [place] <=1.005 Low 1.010-1.030 Urine Blood NEGATIVE Negative Urine PH 7.0 N 6.5-7.5 Urine Protein - Dipstick NEGATIVE mg/dL Negative Urine Urobilinogen - Dipstick 0.2 E.U./dL N 0.2-1.0 Urine Nitrite - Dipstick NEGATIVE Negative Urine Leuk Esterase NEGATIVE Negative Source: URINE, CLEAN CAT <SEE NOTE> 18 Laboratory 06/26/2017 [facility] Troponin-I < 0.015 19, 20 test finding LABORATORY ng/mL [phone] Laboratory 03/11/2017 [facility] Rapid Strep Negative Negative 21 test finding [phone] Molecular Laboratory 12/18/2016 In House Culture Throat negative test finding Rapid Screen Culture Throat negative Carmen Gomez 12/18/2016 [facility] Ebv Capsid Ag Positive N Negative 22 Comprehensive [phone] IgG Ab Ebv Capsid Ag IgM Ab Negative N Negative Carmen-Gomez Nuclear Antigen Positive N Negative Carmen-Gomez Virus Interp See Comment N 23 Comp Metabolic Panel 12/18/2016 [facility] Sodium 135 mmol/L N 133- 145 [phone] Potassium 4.0 mmol/L N 3.5-5.0 Chloride 99 mmol/L Low 101-111 Co2 Carbon Dioxide 31 mmol/L N 22-32 Anion Gap 5 mmol/L N 2-11 Glucose 83 mg/dL N 70-100 Blood Urea Nitrogen 13 mg/dL N 6-24 Creatinine 0.82 mg/dL N 0.51-0.95 BUN/Creatinine Ratio 15.9 N 8-20 Calcium 9.3 mg/dL N 8.6-10.3 Total Protein 7.2 g/dL N 6.4-8.9 Albumin 4.1 g/dL N 3.2-5.2 Globulin 3.1 g/dL N 2-4 Albumin/Globulin Ratio 1.3 N 1-3 Total Bilirubin 0.60 mg/dL N 0.2-1.0 Alkaline Phosphatase 111 U/L High 34-104 Alt 50 U/L N 7-52 Ast 34 U/L N 13-39 Egfr Non- 86.4 N >60 Egfr 111.1 N >60 24 CBC Auto Diff 12/18/2016 [facility] White Blood Count 7.8 10^3/uL N 3.5-10.8 [phone] Red Blood Count 4.57 10^6/uL N 4.0-5.4 Hemoglobin 13.5 g/dL N 12.0-16.0 Hematocrit 40 % N 35-47 Mean Corpuscular Volume 87 fL N 80-97 Mean Corpuscular Hemoglobin 30 pg N 27-31 Mean Corpuscular HGB Conc 34 g/dL N 31-36 Red Cell Distribution Width 15 % N 10.5-15 Platelet Count 250 10^3/uL N 150-450 Mean Platelet Volume 10 um3 N 7.4-10.4 Abs Neutrophils 4.6 10^3/uL N 1.5-7.7 Abs Lymphocytes 1.9 10^3/uL N 1.0-4.8 Abs Monocytes 0.6 10^3/uL N 0-0.8 Abs Eosinophils 0.7 10^3/uL High 0-0.6 Abs Basophils 0.1 10^3/uL N 0-0.2 Abs Nucleated RBC 0 10^3/uL N Granulocyte % 58.5 % N 38-83 Lymphocyte % 23.7 % Low 25-47 Monocyte % 8.1 % N 1-9 Eosinophil % 8.7 % High 0-6 Basophil % 1.0 % N 0-2 Nucleated Red Blood Cells % 0 N Laboratory test finding 12/18/2016 [facility] Magnesium 2.0 mg/dL N 1.9-2.7 [phone] Vitamin B12 420 pg/mL N 180-001 25 CMV Igg/Igm 12/18/2016 [facility] Cytomegalovirus IgG Negative N Negative 26 [phone] Antibody Cytomegalovirus IgM Antibody Negative N Negative Laboratory test 08/29/2016 [facility] Vitamin D Total 31.0 ng/mL N 30 -50 27 finding [phone] 25(Oh) HCG < 0.60 mIU/mL N 28 Xray 08/11/2016 [facility] Medicine X-Ray, Cervical reduced 29 Spine Min 4 cervical loo Views, Ap, Lat, & Both Oblique Connective Tissue 06/11/2016 [facility] Anti-Nuclear 0.2 U N 30, 31 Panel [phone] Antibody Cyclic Citrullinated Peptide <15.6 U N 32 Interpretation See Comment N 33 Laboratory test finding 06/11/2016 [facility] Magnesium 2.0 mg/dL N 1.9-2.7 34 [phone] C Reactive Protein 14.06 mg/L High < 5.00 35 TSH (Thyroid Stim Horm) 1.43 mcIU/mL N 0.34-5.60 36 Vitamin B12 438 pg/mL N 180-090 37 Vitamin D Total 25(Oh) 17.5 ng/mL Low 30-50 38 Comp Metabolic Panel 06/11/2016 [facility] Sodium 135 mmol/L N 133- 145 [phone] Potassium 3.8 mmol/L N 3.5-5.0 Chloride 101 mmol/L N 101-111 Co2 Carbon Dioxide 27 mmol/L N 22-32 Anion Gap 7 mmol/L N 2-11 Glucose 107 mg/dL High 70-100 Blood Urea Nitrogen 10 mg/dL N 6-24 Creatinine 0.82 mg/dL N 0.51-0.95 BUN/Creatinine Ratio 12.2 N 8-20 Calcium 9.6 mg/dL N 8.6-10.3 Total Protein 7.4 g/dL N 6.4-8.9 Albumin 4.2 g/dL N 3.2-5.2 Globulin 3.2 g/dL N 2-4 Albumin/Globulin Ratio 1.3 N 1-3 Total Bilirubin 0.40 mg/dL N 0.2-1.0 Alkaline Phosphatase 92 U/L N 34-104 Alt 56 U/L High 7-52 Ast 32 U/L N 13-39 Egfr Non- 87.2 N >60 Egfr 112.1 N >60 39 Laboratory test 06/10/2016 [facility] Erythrocyte Sed 24 mm/Hr High 0 -14 40, 41 finding [phone] Rate CBC Auto Diff 06/10/2016 [facility] White Blood 8.4 N 3.5-10.8 [phone] Count 10^3/uL Red Blood Count 4.79 10^6/uL N 4.0-5.4 Hemoglobin 13.8 g/dL N 12.0-16.0 Hematocrit 41 % N 35-47 Mean Corpuscular Volume 87 fL N 80-97 Mean Corpuscular Hemoglobin 29 pg N 27-31 Mean Corpuscular HGB Conc 33 g/dL N 31-36 Red Cell Distribution Width 14 % N 10.5-15 Platelet Count 291 10^3/uL N 150-450 Mean Platelet Volume 10 um3 N 7.4-10.4 Abs Neutrophils 5.5 10^3/uL N 1.5-7.7 Abs Lymphocytes 2.4 10^3/uL N 1.0-4.8 Abs Monocytes 0.4 10^3/uL N 0-0.8 Abs Eosinophils 0.1 10^3/uL N 0-0.6 Abs Basophils 0.1 10^3/uL N 0-0.2 Abs Nucleated RBC 0.01 10^3/uL N Granulocyte % 65.1 % N 38-83 Lymphocyte % 27.9 % N 25-47 Monocyte % 4.6 % N 1-9 Eosinophil % 1.3 % N 0-6 Basophil % 1.1 % N 0-2 Nucleated Red Blood Cells % 0.1 N Urine Micro Inhouse 04/24/2016 In House Ua WBC 6-10 42 Ua RBC 0-2 Ua Casts - Ua Epi 4-7 Ua Other - Ua Glucose - Ua Bilirubin sm Ua Ketones - Ua Specific [place] 1.015 Ua Blood sm Ua PH 6.5 Ua Protein - Ua Urobilinogen - Ua Nitrite - Ua Leukocytes sm Culture Urine Inhouse 04/24/2016 In House Colonies no growth Comp Metabolic Panel 03/06/2016 [facility] Sodium 137 mmol/L N 133- 145 43 [phone] Potassium 3.9 mmol/L N 3.5-5.0 Chloride 100 mmol/L Low 101-111 Co2 Carbon Dioxide 31 mmol/L N 22-32 Anion Gap 6 mmol/L N 2-11 Glucose 91 mg/dL N 70-100 Blood Urea Nitrogen 15 mg/dL N 6-24 Creatinine 0.87 mg/dL N 0.51-0.95 BUN/Creatinine Ratio 17.2 N 8-20 Calcium 9.8 mg/dL N 8.6-10.3 Total Protein 7.2 g/dL N 6.4-8.9 Albumin 4.1 g/dL N 3.2-5.2 Globulin 3.1 g/dL N 2-4 Albumin/Globulin Ratio 1.3 N 1-3 Total Bilirubin 0.50 mg/dL N 0.2-1.0 Alkaline Phosphatase 91 U/L N 34-104 Alt 96 U/L High 7-52 Ast 50 U/L High 13-39 Egfr Non- 81.4 N >60 Egfr 104.7 N >60 44 Laboratory test 03/06/2016 [facility] TSH (Thyroid 1.19 mcIU/mL N 0.34-5.60 45 finding [phone] Stim Horm) Magnesium 2.1 mg/dL N 1.9-2.7 46 Vitamin B12 453 pg/mL N 180-914 47 Vitamin D Total 25(Oh) 20.7 ng/mL Low 30-50 48 CBC Auto Diff 03/06/2016 [facility] White Blood Count 8.3 10^3/uL N 3.5-10.8 [phone] Red Blood Count 4.71 10^6/uL N 4.0-5.4 Hemoglobin 13.7 g/dL N 12.0-16.0 Hematocrit 41 % N 35-47 Mean Corpuscular Volume 87 fL N 80-97 Mean Corpuscular Hemoglobin 29 pg N 27-31 Mean Corpuscular HGB Conc 33 g/dL N 31-36 Red Cell Distribution Width 14 % N 10.5-15 Platelet Count 278 10^3/uL N 150-450 Mean Platelet Volume 10 um3 N 7.4-10.4 Abs Neutrophils 5.4 10^3/uL N 1.5-7.7 Abs Lymphocytes 2.1 10^3/uL N 1.0-4.8 Abs Monocytes 0.5 10^3/uL N 0-0.8 Abs Eosinophils 0.1 10^3/uL N 0-0.6 Abs Basophils 0.1 10^3/uL N 0-0.2 Abs Nucleated RBC 0 10^3/uL N Granulocyte % 65.3 % N 38-83 Lymphocyte % 25.2 % N 25-47 Monocyte % 6.5 % N 1-9 Eosinophil % 1.8 % N 0-6 Basophil % 1.2 % N 0-2 Nucleated Red Blood Cells % 0 N Xray 02/08/2016 [facility] X-Ray, Normal 49 Acromioclavicular, bilateral A/ Bilateral HSV Type 01/17/2016 [facility] Herpes Simplex Type 1 Reactive N Negative 50, 51 1 And [phone] IgM Type 2, Igm Herpes Simplex 1 2 IgM Ifa Negative N Negative 52 RPR 01/17/2016 [facility] Syphillis Igg Nonreactive N Nonreactive 53 [phone] W/Reflex RPR HIV 1/2 AB 01/17/2016 [facility] HIV 1 2 Nonreactive N Nonreactive 54 Evaluation [phone] Antibody Laboratory test 12/05/2015 [facility] Culture SEE RESULT 55 finding [phone] Genital & BELOW Sensitivity Laboratory test 12/05/2015 In House negative finding Test Urine Laboratory test 07/09/2015 [facility] Vitamin B12 642 pg/mL [phone] finding LABORATORY [phone] Comprehensive 07/09/2015 [facility] Glucose 98 mg/dL 74- 106 Metabolic Panel LABORATORY [phone] BUN 15 mg/dL 7-18 Creatinine 1.0 mg/dL 0.6-1.3 Glom Filtration Rate, Estimate >60 mL/min >60 If >60 mL/min >60 57 BUN/Creat 15.0 ratio Sodium 139 mmol/L 136-145 Potassium 3.9 mmol/L 3.5-5.1 Chloride 102 mmol/L 98-107 Carbon Dioxide 29 mmol/L 21-32 Anion Gap 8 mEq/L 8-16 Calcium 9.1 mg/dL 8.5-10.1 Total Protein 7.9 g/dL 6.4-8.2 Albumin 3.7 g/dL 3.4-5.0 Globulin 4.2 g/dL 1.9-4.3 Alb/Glob 0.9 ratio Bilirubin,Total 0.3 mg/dL 0.2-1.0 Sgot/Ast 20 U/L 15-37 SGPT/Alt 38 U/L 12-78 Alkaline Phosphatase 101 U/L 45-117 CBS W/Automated 07/09/2015 [facility]. White Blood 6.8 K/uL 3.1-10.7 Diff LABORATORY Count [phone] Red Blood Count 4.74 M/uL 3.90-5.40 Hemoglobin 14.0 gm/dL 11.6-15.8 Hematocrit 42.5 % 36.0-46.1 Mean Cell Volume 89.7 fl 80.9-99.0 Mean Corpuscular HGB 29.5 pg 25.9-32.7 Mean Corpuscular HGB Conc 32.9 g/dL 30.8-34.3 Platelet Count 269 K/uL 155-360 Red Cell Distri Width SD 45.1 fl 3-47 Red Cell Distri Width %CV 14.2 % 11.7-14.4 Mean Platelet Volume 12.3 fL 8.9-12.4 Neut% 58.7 % 40.4-72.8 Lymph % 29.8 % 17.0-46.1 [place] % 9.0 % 4.3-13.2 Eo% 2.1 % 0.0-6.6 Bas% 0.4 % 0.0-1.1 Neut# 4.00 K/uL 1.8-7.0 Lymph # 2.03 K/uL 1.8-7.0 [place] # 0.61 K/uL 0.3-0.9 Eos # 0.14 K/uL 0.0-0.5 Baso # 0.03 K/uL 0.0-0.1 Laboratory test 07/09/2015 [facility]. Magnesium 2.3 mg/dL 1.8-2.4 finding LABORATORY [phone] Thyroid Stim Hormone 0.82 uIU/mL 0.30-4.20 Vitamin D,25-Hydroxy 33.8 ng/mL 30.0-100.0 58 Laboratory test 10/26/2014 [facility] Surgical Pathology SEE RESULT 59 finding [phone] BELOW 1 Negative result does not rule out HIV infection. If exposure to HIV infection occurred <14 days ago, contact the laboratory to request addition of HIV-1 RNA detection / quantification test (HIVQN). Test Performed by: [facility] [address] [place] [address] 2 Therapeutic target for the treatment of diabetes mellitus patients is <7% HBA1C, and in selective patients <6.0%. Please refer to [place] [employer] diabetic care guidelines for further information. 3 Normal Range 180 to 914 Indeterminate Range 145 to 180 Deficient Range <145 4 Because ethnic data is not always readily available, this report includes an eGFR for both -Americans and non- Americans. The National Kidney Disease Education Program (NKDEP) does not endorse the use of the MDRD equation for patients that are not between the ages of 18 and 70, are , have extremes of body size, muscle mass, or nutritional status, or are non- or non-. According to the National Kidney Foundation, irrespective of diagnosis, the stage of the disease is based on the level of kidney function: Stage Description GFR(mL/min/1.73 m(2)) 1 Kidney damage with normal or decreased GFR 90 2 Kidney damage with mild decrease in GFR 60-89 3 Moderate decrease in GFR 30-59 4 Severe decrease in GFR 15-29 5 Kidney failure <15 (or dialysis) 5 Painting Department Supervisor: [id number] Painting Department Supervisor: [id number] Painting Department Supervisor: [id number] Painting Department Supervisor: [id number] 9 Painting Department Supervisor: [id number] 10 SEE RESULT BELOW Name: AIMEEMADY : [address]: Flex Ashley MD Acct: [id number] Unit: [id number] AGE: 22 Location: ED Re04/07/18 SEX: F Status: REG ER SPEC: [id number] TOMÁS: 04/07/[address] [facility] [address]: Mady LEO REQ: [id number] RECD: 04/07/18 STATUS: RASHEL VERDIN DR: Hector Villegas MD _ SOURCE: NASAL SPDESC: ORDERED: Flu A B Request Procedure Result Reported Site Rapid Influenza A B Request Final 04/07/18- 2242 ML Specimen received for Influenza A/B Molecular testing * ML - Main Lab . END OF REPORT DEPARTMENT OF PATHOLOGY, [address] [place] [address] Angus Pisano M.D. Director [facility] # [id number] 11 SEE RESULT BELOW Name: MADY PENA : [address]: Flex Ashley MD Acct: [id number] Unit: [id number] AGE: 22 Location: ED Re04/07/18 SEX: F Status: REG ER SPEC: [id number] TOMÁS: 04/07/[address] [facility] [address]: Mady LEO REQ: [id number] RECD: 04/07/18 STATUS: RASHEL VERDIN DR: Hector Villegas MD _ SOURCE: THROAT SPDESC: ORDERED: Strep A Request Procedure Result Reported Site Rapid Strep A Request Final 04/07/18- 2244 ML Specimen received for Rapid Strep A Molecular testing * ML - Main Lab . END OF REPORT DEPARTMENT OF PATHOLOGY, [address] [place] [address] Angus Pisano M.D. Director [facility] # [id number] 12 OVERDOSE 13 0.0 - 0.045 ng/mL: Normal 0.046 - 0.5 ng/mL: Suggestive 0.6 - 1.5 ng/mL: Consistent 14 Note: Persistent reduction for 3 months or more in an eGFR <60 mL/min/1.73 m2 defines CKD. Patients with eGFR values >/=60 mL/min/1.73 m2 may also have CKD if evidence of persistent proteinuria is present. The original MDRD equation for estimated GFR is not valid for patients less than 18 years of age. Additional information may be found at www.kdoqi.org. 15 TOOK SLEEPING PILLS, 941 16 URINE SPECIMENS ARE SCREENED AT THE LISTED CUTOFFS DRUG CLASS INITIAL TEST LEVEL Amphetamines 1000 ng/mL Barbiturates 200 ng/mL Benzodiazepines 200 ng/mL Cannabinoids 50 ng/mL Cocaine Metabolite 300 ng/mL Methadone 300 ng/mL Opiates 300 ng/mL Any PRESUMPTIVE POSITIVE findings are UNCONFIRMED. Confirmatory testing is suggested if findings are unexpected. Please contact laboratory if confirmatory testing is desired. SPECIMENS ARE HELD FOR 72 HOURS. 17 THERAPEUTIC RANGE: 15-30 mg/dL POTENTIAL TOXICITY VARIES WITH TIME FROM INGESTION. PLEASE CONSULT APPROPRIATE NOMOGRAM. 18 URINE, CLEAN CATCH 19 OVERDOSE 20 0.0 - 0.045 ng/mL: Normal 0.046 - 0.5 ng/mL: Suggestive 0.6 - 1.5 ng/mL: Consistent 21 Painting Department Supervisor: [id number] 22 Stool collection not done yet., labs complete. 23 RESULT: Results suggest past infection. ADDITIONAL INFORMATION In most populations, at least 90% of the adult population will have been infected with EBV sometime in the past and therefore, will be positive for anti-VCA/IgG and anti- EBNA. Antibodies to EBNA develop 6-8 weeks after primary infection and remain present for life. Presence of VCA/ IgM antibodies indicates recent primary infection with EBV. Test Performed by: [facility] [place] [address] 24 Because ethnic data is not always readily available, this report includes an eGFR for both -Americans and non- Americans. The National Kidney Disease Education Program (NKDEP) does not endorse the use of the MDRD equation for patients that are not between the ages of 18 and 70, are , have extremes of body size, muscle mass, or nutritional status, or are non- or non-. According to the National Kidney Foundation, irrespective of diagnosis, the stage of the disease is based on the level of kidney function: Stage Description GFR(mL/min/1.73 m(2)) 1 Kidney damage with normal or decreased GFR 90 2 Kidney damage with mild decrease in GFR 60-89 3 Moderate decrease in GFR 30-59 4 Severe decrease in GFR 15-29 5 Kidney failure <15 (or dialysis) 25 Normal Range 180 to 914 Indeterminate Range 145 to 180 Deficient Range <145 26 Test Performed by: [facility] [employer] [place] [address] 27 bHCG quantitative for is desired it was not clear from priya st which was appropriate. 28 <5.0 Negative 5.0 - 25.0 Indeterminate (Repeat testing recommended after 72 hours) >25.0 Positive Perimenopausal women can display HCG levels of up to 20 mIU/mL 29 Flattened cervical lordosis. Otherwise normal Cervical spine films. 30 [id number] REFERENCE VALUE <=1.0 (Negative) 32 REFERENCE VALUE <20.0 (Negative) 33 Tests for antibodies to dsDNA and MYRA antigens are not performed automatically unless the VASU result is > or= 3.0 U. Studies performed at [facility] indicate that positive VASU results <3.0 U are rarely accompanied by positive second order tests. Test Performed by: [facility] [address] [address] 34 [id number] 35 Acute inflammation: >10.00 36 [id number] 37 Normal Range 180 to 914 Indeterminate Range 145 to 180 Deficient Range <145 38 [id number] 39 Because ethnic data is not always readily available, this report includes an eGFR for both -Americans and non- Americans. The National Kidney Disease Education Program (NKDEP) does not endorse the use of the MDRD equation for patients that are not between the ages of 18 and 70, are , have extremes of body size, muscle mass, or nutritional status, or are non- or non-. According to the National Kidney Foundation, irrespective of diagnosis, the stage of the disease is based on the level of kidney function: Stage Description GFR(mL/min/1.73 m(2)) 1 Kidney damage with normal or decreased GFR 90 2 Kidney damage with mild decrease in GFR 60-89 3 Moderate decrease in GFR 30-59 4 Severe decrease in GFR 15-29 5 Kidney failure <15 (or dialysis) 40 [id number] 41 [id number] 42 void, clear, gold 43 [id number] 44 Because ethnic data is not always readily available, this report includes an eGFR for both -Americans and non- Americans. The National Kidney Disease Education Program (NKDEP) does not endorse the use of the MDRD equation for patients that are not between the ages of 18 and 70, are , have extremes of body size, muscle mass, or nutritional status, or are non- or non-. According to the National Kidney Foundation, irrespective of diagnosis, the stage of the disease is based on the level of kidney function: Stage Description GFR(mL/min/1.73 m(2)) 1 Kidney damage with normal or decreased GFR 90 2 Kidney damage with mild decrease in GFR 60-89 3 Moderate decrease in GFR 30-59 4 Severe decrease in GFR 15-29 5 Kidney failure <15 (or dialysis) 45 [id number] 47 Normal Range 180 to 914 Indeterminate Range 145 to 180 Deficient Range <145 48 [id number] no fracture or increased seperation. No degenerative changes. 50 [id number] 51 Reactive, but NOT diagnostic. Confirmatory testing by immunofluorescence antibody (IFA) is required and has been ordered under test "Herpes Simplex Virus (HSV) Antibody, IgM, by Immunofluorescence Assay (IFA), Serum." ADDITIONAL INFORMATION This test has been modified from the bead maker's instructions. Its performance characteristics were determined by [facility] in a manner consistent with CLIA requirements. This test has not been cleared or approved by the U.S. Food and Drug Administration. Test Performed by: [place] [address] Supervisor Refining: Shin Denton II, M.D., Ph.D. 52 ADDITIONAL INFORMATION HSV IgM performed by immunofluorescence antibody (IFA). Test Performed by: [place] [address] Supervisor Refining: Shin Denton II, M.D., Ph.D. 53 Warning: A positive result is not useful for establishing a diagnosis of syphilis. In most situations, such a result may reflect a prior treated infection; a negative result can exclude a diagnosis of syphilis except for incubating or early primary disease. 54 It is recognized that currently available assays for the detection of antibodies to HIV-1 and/or HIV-2 may not detect all infected individuals. HIV antibodies may be undetectable in some stages of the infection and in some clinical conditions. The performance of this assay has not been established for populations of infants or children. Assayed by Chemiluminescence Microparticle Immunoassay on the Siemens Advia Centaur CP. Values obtained with different methods or kits cannot be used interchangeably.The diagnostic specificity of the ADVIA Centaur 1/O/2 Enhanced assay in the low risk population was 99.90% (6052/6058) with a 95% confidence interval of 99.78 to 99.96%. 55 SEE RESULT BELOW Name: MADY PENA : [address]: Hector Moses DO Acct: [id number] Unit: [id number] AGE: 20 Location: [facility] Re12/05/15 SEX: F Status: REG REF SPEC: [id number] TOMÁS: 12/05/15-933 BARBARA CHEUNG: Hector Moses DO REQ: [id number] RECD: 12/06/15 STATUS: COMP _ SOURCE: VAGINAL SPDESC: ORDERED: Genital Culture COMMENTS: [id number] Procedure Result Reported Site Genital Culture Final 12/08/15- 1106 ML Organism 1 STREP GROUP B Quantity 2+ Organism 2 AZAEL VAGINALIS - PRESUMPTIVE Quantity 3+ Organism 3 NORMAL POOL Quantity 2+ Routine genital cultures do not include selective agar for Neisseria gonorrhoeae. Molecular testing offers better test sensitivity and therefore is the preferred test methodology for identifying this organism. * ML - MAIN LAB ([facility]) . END OF REPORT * ML=Testing performed at Main Lab DEPARTMENT OF PATHOLOGY, [address] [place] [address] Angus Pisano M.D. Director [facility] # [id number] 56 QUERY: Is Patient Fasting? N 57 Note: Persistent reduction for 3 months or more in an eGFR <60 mL/min/1.73 m2 defines CKD. Patients with eGFR values >/=60 mL/min/1.73 m2 may also have CKD if evidence of persistent proteinuria is present. The original MDRD equation for estimated GFR is not valid for patients less than 18 years of age. Additional information may be found at www.kdoqi.org. 58 Vitamin D deficiency has been defined by the [place] of Medicine and an Endocrine Society practice guideline as a level of serum 25-OH vitamin D less than 20 ng/mL (1,2). The Endocrine Society went on to further define vitamin D insufficiency as a level between 21 and 29 ng/mL (2). 1. IOM ([place] of Medicine). 2010. Dietary reference intakes for calcium and D. [place]: The National Academies Press. 2. Conchis MF, Herminio PERDOMO, Melani ROBERTSON, et al. Evaluation, treatment, and prevention of vitamin D deficiency: an Endocrine Society clinical practice guideline. JCEM. 2010; 96(7):1911-30. Performed at: [facility] [id number] Surgery Teacher: Laverne Phillips MD, Phone: [phone] 59 SEE RESULT BELOW Name: MADY PENA : [address]: Hector Moses DO Acct: [id number] Unit: [id number] AGE: 18 Location: [facility] Re10/26/14 SEX: F Status: REG REF SPEC: [id number] TOMÁS: 10/26/14-[address]: Hector Moses DO REQ: [id number] RECD: 10/26/141304 STATUS: SOUT _ ORDERED: LEVEL IV FINAL DIAGNOSIS Skin, left ear, shave biopsy: -- Superficial squamous epithelium with impetiginization and severe acute inflammation in superficial dermis. See comment. Comment: This shave biopsy is quite superficial demonstrating only the upper dermis which demonstrates a dense infiltrates predominantly consisting of polymorphonuclear cells with few lymphocytes and scattered plasma cells. This most likely represents an acute infectious process. Correlation with microbiology studies is suggested. CLINICAL HISTORY Present for approximately 2 weeks, area of elevation tender to palpation without pus PRE-OPERATIVE DIAGNOSIS 380.89, 380.10 GROSS DESCRIPTION The specimen is received in formalin labeled, Left Ear, and consists of a 0.8 x 0.2 cm rdz-white folded-circular skin fragment. There is a central 0.1 cm darkened area. The specimen is inked, bisected and entirely submitted in one cassette. Signed (signature on file) Angus Pisano MD 1302 END OF REPORT * ML=Testing performed at Main Lab DEPARTMENT OF PATHOLOGY, [address] [place] [address] Angus Pisano M.D. Director [facility] # [id number] Procedures Date Code Description Status 11/27/2017 49505 Brief Emotional/Behav Assessment W/ Scoring Doc Per Completed Standard Inst 11/27/2017 09178 Electrocardiogram Complete Completed 08/11/2016 95666 X-Ray, C-Spine Complete, Min 4 Completed 06/10/2016 42749 Osteopathic Manipulative Treatment 1 Or 2 Body Region Completed 04/24/2016 07207 Omt 7-8 Body Regions Completed 03/13/2016 88436 Omt 3 To 4 Body Regions Involved Completed 02/08/2016 15294 X-Ray Acromioclavicular Joints Bilateral Completed 08/09/2015 47309 Omt 3 To 4 Body Regions Involved Completed 10/26/2014 95489 Destruction Of Skin Lesions Up To 14 Flat Warts/Molluscum Completed Contag 10/26/2014 80183 Biopsy Skin Lesion Single Completed Encounters Type Date Location Provider Dx Diagnosis Office Visit 04/15/2018 Main Office Hector Moses, F41.1 Generalized anxiety 1:30p D.O. disorder F43.23 Adjustment disorder with mixed anxiety and depressed mood Office Visit 02/25/2018 8:30a Main Office Hector Moses, F41.1 Generalized anxiety D.O. 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 collapse F41.1 Generalized anxiety disorder F51.5 Nightmare disorder Z23 Encounter for immunization R07.89 Other chest pain Z13.89 Encounter for screening for other disorder Office Visit 04/13/2017 10:45a Main Office Hector Moses F43.23 Adjustment D.O. disorder with mixed anxiety and depressed mood R12 Heartburn Z63.4 Disappearance and of family member Office Visit 12/18/2016 9:00a Main Office Hector Moses D.O. R53.83 Other fatigue J03.90 Acute tonsillitis, unspecified K21.0 Gastro-esophageal reflux disease with esophagitis Office Visit 11/05/2016 4:45p Main Office Hector Moses D.O. R53.83 Other fatigue A09 Infectious gastroenteritis and colitis, unspecified Office Visit 08/29/2016 3:00p Main Office Hector Moses F43.23 Adjustment D.O. disorder with mixed anxiety and depressed mood M25.512 Pain in left shoulder M54.2 Cervicalgia Office Visit 08/11/2016 12:55p Main Office Hector Moses F43.23 Adjustment D.O. disorder with mixed anxiety and depressed mood M25.512 Pain in left shoulder M54.2 Cervicalgia Office Visit 07/10/2016 9:15a Main Office Hector Moses F43.23 Adjustment D.O. disorder with mixed anxiety and depressed mood Z63.8 Other specified problems related to primary support group M54.5 Low back pain Office Visit 06/10/2016 11:15a Main Office Hector Moses F43.23 Adjustment D.O. disorder with mixed anxiety and depressed mood Z63.8 Other specified problems related to primary support group M54.5 Low back pain R53.83 Other fatigue M99.02 Segmental and somatic dysfunction of thoracic region M99.08 Segmental and somatic dysfunction of rib cage Office Visit 04/24/2016 1:30p Main Office Hector Moses, F43.23 Adjustment D.O. disorder with mixed anxiety and depressed mood M54.5 Low back pain Z23 Encounter for immunization F51.5 Nightmare disorder M99.04 Segmental and somatic dysfunction of sacral region M99.05 Segmental and somatic dysfunction of pelvic region M99.01 Segmental and somatic dysfunction of cervical region M99.03 Segmental and somatic dysfunction of lumbar region M99.08 Segmental and somatic dysfunction of rib cage M99.00 Segmental and somatic dysfunction of head region M99.02 Segmental and somatic dysfunction of thoracic region Office Visit 03/13/2016 4:30p Main Office Hector Moses, F43.23 Adjustment D.O. disorder with mixed anxiety and depressed mood R51 Headache M99.01 Segmental and somatic dysfunction of cervical region M99.00 Segmental and somatic dysfunction of head region M99.02 Segmental and somatic dysfunction of thoracic region M99.08 Segmental and somatic dysfunction of rib cage Office Visit 02/08/2016 4:30p Main Office Hector Moses F43.23 Adjustment D.O. disorder with mixed anxiety and depressed mood M25.512 Pain in left shoulder R51 Headache Office Visit 12/27/2015 3:55p Main Office Rocío Rodriguez, F43.23 Adjustment disorder PA with mixed anxiety and depressed mood L70.0 Acne vulgaris G44.209 Tension-type headache, unspecified, not intractable Office Visit 12/05/2015 4:40p Main Office Rocío Rodriguez PA N76.0 Acute vaginitis Z32.02 Encounter for test, result negative Z72.51 High risk heterosexual behavior Office Visit 11/14/2015 1:20p Main Office Rocío Rodriguez PA L70.0 Acne vulgaris Z23 Encounter for immunization Office Visit 08/09/2015 4:30p Main Office Hector Moses, F41.9 Anxiety disorder, D.O. unspecified Z30.09 Encounter for oth general coun and advice on contraception M99.08 Segmental and somatic dysfunction of rib cage M99.00 Segmental and somatic dysfunction of head region M99.01 Segmental and somatic dysfunction of cervical region M99.02 Segmental and somatic dysfunction of thoracic region R51 Headache Office Visit 07/07/2015 9:00a Main Office Hector Moses, F41.9 Anxiety disorder, D.O. unspecified L70.0 Acne vulgaris Z23 Encounter for immunization Office Visit 04/21/2015 10:15a Main Office Hector Moses F41.9 Anxiety disorder, D.O. unspecified L70.0 Acne vulgaris E55.9 Vitamin D deficiency, unspecified E53.8 Deficiency of other specified B group vitamins Office Visit 03/31/2015 9:45a Main Office Hector Moses F41.9 Anxiety disorder, D.O. unspecified Office Visit 10/26/2014 8:45a Main Office Hector Moses, 380.89 Ear External D.O. Disorders Other 388.70 Otalgia & Earache Unspec 078.19 Viral Warts Spec Other 380.10 Otitis Externa Infective Unspec 706.1 Acne Other 238.2 Neoplasm Uncertain Skin Office Visit 03/29/2014 1:15p Main Office Hector Moses D.O. 706.1 Acne Other Plan of Treatment 05/13/2018 - Hector Moses D.O.L50.1 Idiopathic urticariaNew Medication: Cetirizine HCL 10 mg - 1 by mouth every dayFollow up:1 month recheck urticaria/ dep/anx with GAD7 and NVH8R32.1 Generalized anxiety cdqatikvD52.23 Adjustment disorder with mixed anxiety and depressed moodF33.3 Major depressive disorder, recurrent, severe with psychotic symptomsNew Medication:Aripiprazole 2 mg - 1 by mouth every day
[2018-06-12 11:27] VITALS: BP 132/87
--- NOTE | 2018-06-12 11:28 | UC ---
Skin Complaint HPI - HPI Summary HPI Summary: 22-year-old woman comes in with a chief complaint of laceration on the dorsum of the right fourth toe. 18 days ago she cut the toe and had a stitch placed in it. today it broke open again when she banged her toe. Pain is worse with weightbearing. Pain is better with rest. No drainage no signs of infection. Tetanus immunization given 18 days ago. No drainage/redness/signs of infection. - History of Current Complaint Chief Complaint: UCLaceration Time Seen by Provider: 06/12/18 11:20 Stated Complaint: LAC ON TOE Hx Last Menstrual Period: 03/23/18 - Allergy/Home Medications Allergies/Adverse Reactions: Allergies Allergy/AdvReac Type Severity Reaction Status Date / Time No Known Allergies Allergy Verified 06/12/18 11:26 PMH/Surg Hx/FS Hx/Imm Hx Previously Healthy: Yes - Surgical History Surgical History: None Surgery Procedure, Year, and Place: denies - Family History Known Family History: Positive: Diabetes - Social History Alcohol Use: Occasionally Substance Use Type: None Smoking Status (MU): Never Smoked Tobacco Length of Time of Smoking/Using Tobacco: 1 year Have You Smoked in the Last Year: Yes - Immunization History Most Recent Influenza Vaccination: NOT CURRENT Review of Systems All Other Systems Reviewed And Are Negative: Yes Constitutional: Positive: Negative Skin: Positive: Other - see hpi Course/Dx - Course Course Of Treatment: No sutures were placed today because there was a stitch in and that didn't work. I removed the single suture. Wound was cleaned and ecchymotic ointment applied and a dressing was applied. The plan is to clean it and change the enema buttock ointment and dressing at least twice a day until is completely healed. Get reevaluated sooner if is any signs of infection or any other questions or concerns. - Diagnoses Provider Diagnosis: Laceration of toe of right foot Discharge - Sign-Out/Discharge Documenting (check all that apply): Patient Departure All imaging exams completed and their final reports reviewed: No Studies - Discharge Plan Condition: Stable Disposition: HOME Patient Education Materials: Laceration Without Closure (ED) Referrals: Hector Moses DO [Primary Care Provider] - Additional Instructions: FOLLOW UP WITH YOUR DOCTOR IF NOT COMPLETELY IMPROVED. CLEAN AND APPLY ANTIBIOTIC OINTMENT AND A BANDAID TWICE A DAY UNTIL COMPLETELY HEALED. GET REEVALUATED SOONER FOR ANY WORSENING OF YOUR CONDITION; SIGNS OF INFECTION OR ANY QUESTIONS OR CONCERNS. - Billing Disposition and Condition Condition: STABLE Disposition: Home
== END 2018-06-12 11:49 | disposition home or self-care (01) ==
LOC: UCEAST 11:12
DX: S91.114A Laceration without foreign body of right lesser toe(s) without damage to nail, initial encounter (principal); W22.8XXA Striking against or struck by other objects, initial encounter; Y92.9 Unspecified place or not applicable
CPT/HCPCS: 99212; G0463

== ENCOUNTER 2018-10-05 17:39 | Emergency (ER) | payer BC ==
[2018-10-05 18:16] VITALS: BP 106/67
--- NOTE | 2018-10-05 18:35 | UC ---
General HPI - HPI Summary HPI Summary: per triage, PT HAS A SORE ON THE RIGHT SIDE CORNER OF HER MOUTH, PAINFUL . PRESENT ABOUT TWO WEEKS. ALSO ANOTHER AREA ON HER CHEST BETWEEN HER BREASTS SHE NOTICED LAST NIGHT. [ End ] no hx MRSA or DM. - History of Current Complaint Chief Complaint: UCSkin Stated Complaint: RASH ON LIPS AND TRUNK Time Seen by Provider: 10/05/18 18:26 Hx Obtained From: Patient Hx Last Menstrual Period: 09/07/18 Onset/Duration: Gradual Onset Timing: Constant Pain Intensity: 7 Associated Signs & Symptoms: Negative: Fever - Allergy/Home Medications Allergies/Adverse Reactions: Allergies Allergy/AdvReac Type Severity Reaction Status Date / Time No Known Allergies Allergy Verified 10/05/18 18:08 PMH/Surg Hx/FS Hx/Imm Hx Psychological History: Depression - Surgical History Surgical History: None Surgery Procedure, Year, and Place: denies - Family History Known Family History: Positive: Diabetes - Social History Occupation: Employed Full-time Alcohol Use: Occasionally Substance Use Type: None Smoking Status (MU): Light Every Day Tobacco Smoker Amount Used/How Often: 4 CIGS A DAY Length of Time of Smoking/Using Tobacco: 1 year Have You Smoked in the Last Year: Yes - Immunization History Most Recent Influenza Vaccination: NOT CURRENT Review of Systems All Other Systems Reviewed And Are Negative: No Constitutional: Negative: Fever, Chills Skin: Positive: Rash - corner mouth-R and rash under breasts. ENT: Positive: Sore Throat. Negative: Ear Ache, Nasal Discharge Physical Exam Triage Information Reviewed: Yes Appearance: Well-Appearing Vital Signs: Initial Vital Signs Temp 98.6 F 10/05/18 18:09 Pulse 90 10/05/18 18:09 Resp 17 10/05/18 18:09 BP 106/67 10/05/18 18:09 Pulse Ox 99 10/05/18 18:09 Vital Signs Reviewed: Yes Eyes: Positive: Conjunctiva Clear ENT: Positive: Pharynx normal, TMs normal, Other - R corner of mouth cracked, pink and macerated. Negative: Nasal congestion, Nasal drainage Neck: Positive: Supple, No Lymphadenopathy Respiratory: Positive: No respiratory distress Neurological: Positive: Alert Psychological: Positive: Age Appropriate Behavior Skin Exam: Normal Skin: Positive: Rashes - pink areas with mild scaleing to surface under L breast Course/Dx - Diagnoses Provider Diagnosis: Angular cheilitis, Tinea corporis Discharge - Sign-Out/Discharge Documenting (check all that apply): Patient Departure All imaging exams completed and their final reports reviewed: No Studies - Discharge Plan Condition: Stable Disposition: HOME Prescriptions: Clotrimazole/Betamethasone* [Lotrisone Cream*] 1 applic TOPICAL BID 5 Days #1 tube Ketoconazole 2 % CREAM (NF) [Nizoral 2% CREAM (NF)] 1 applic TOPICAL BID 14 Days #1 tube Patient Education Materials: Tinea Corporis (ED) Referrals: Hector Moses DO [Primary Care Provider] - 7 Days - Billing Disposition and Condition Condition: STABLE Disposition: Home - Attestation Statements Provider Attestation: Per institutional requirements, I have reviewed the chart, however, I was not consulted specifically or made aware of this patient by the midlevel provider. I did not personally evaluate, interact with , or disposition this patient.
== END 2018-10-05 18:56 | disposition home or self-care (01) ==
LOC: UCCORT 17:39
DX: K13.0 Diseases of lips (principal); B35.4 Tinea corporis; F17.200 Nicotine dependence, unspecified, uncomplicated
CPT/HCPCS: 99212; G0463

== ENCOUNTER 2019-01-19 10:49 | Emergency (ER) | payer BC ==
--- OUTSIDE RECORDS SUMMARY | 2019-01-19 11:05 | XMS REPORT | Continuity of Care Document ---
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 Onset: 10/26/2014 Adjustment disorder with mixed emotional HekRocío benavidez PA Onset: 12/27/2015 features Shoulder joint pain Hector Moses D.O. Onset: 02/08/2016 Malaise and fatigue Hector Moses D.O. Onset: 06/10/2016 Generalized anxiety disorder Hector Moses D.O. Onset: 11/27/2017 Social History Type Date Description Comments Sex Unknown Tobacco Use Start: Unknown current cigarette 1 pack per week smoker Smoking Status Reviewed: 08/30/18 current cigarette 1 pack per week smoker ETOH Use Rarely consumes alcohol Tobacco Use Start: Unknown Patient is a current currently about 8 smoker, smokes every cigarettes a day, day working to quit smoking Recreational Drug Use Cannabis Exercise Type/Frequency Exercises sporadically Sun Exposure Uses sunscreen Seat Belt/Car Seat Yes Allergies, Adverse Reactions, Alerts Description No Known Drug Allergies Medications Active Medications SIG Qnty Indications Ordering Date Provider Fluconazole 2 tabs on day 1 15tabs Hector Moses, 12/28/2018 200mg Tablets the 1 tab daily D.O. for 2 weeks. Amitriptyline HCL 1 by mouth every 90tabs F41.1 Hector Moses, 04/15/2018 10mg night at bedtime D.O. Tablets Buspirone HCL take 1 tablet by 270tabs F43.23 Hector Moses, 07/10/2016 15mg mouth three D.O. Tablets times daily for anxiety F41.1 Escitalopram Oxalate 1 by mouth every 90tabs F43.23 Hector Moses, 2016 20mg day D.O. Tablets F41.1 Medications Administered in Office Medication SIG Qnty Indications Ordering Provider Date TB Intradermal Test Delmi Villa 08/20/2018 Injection TB Intradermal Test Hector Moses DMarcin 03/14/2013 Injection Immunizations CPT Code Status Date Vaccine Lot # [id number] Given 11/27/2017 Influenza Virus Vaccine, Quadrivalent, Split, [id number] Preservative Free 78702 Given 03/20/2017 Influenza Virus Vaccine, Quadrivalent, Split, Preservative Free 02291 Given 04/24/2016 Gardasil 9 HPV vaccine; Nonavalent 3 [place] [id number] [place] [address] Given 11/14/2015 Gardasil 9 HPV vaccine; Nonavalent 3 [place] [id number] [place] [address] Given 07/07/2015 Adacel or Boostrix, TDaP [id number] 22523 Given 07/07/2015 Gardasil 9 HPV vaccine; Nonavalent 3 [place] [id number] [place] [address] Given 01/18/2014 Influenza Virus Vaccine, Quadrivalent, Split, [id number] Preservative Free 20285 Given 03/14/2013 Flu, Split Virus 3Yrs [id number] 04302 Given 07/25/2009 Menactra Menningitis Vaccine 33732 Given 10/29/1998 Poliomyelitis Immunization 99410 Given 10/29/1998 MMR Virus Immunization 75729 Given 10/29/1998 DTP Immunization 65274 Given 07/16/1995 MMR Virus Immunization 98053 Given 07/16/1995 Oral Poliovirus Immunization 63756 Given 07/16/1995 DTP-Hib (Tetramune) 30377 Given 07/29/1994 Hep B Immunization, Ped/Adolescent To 11 Yrs 60006 Given 05/05/1994 DTP Immunization 36894 Given 05/05/1994 Hib 4 Dose, Acthib 49549 Given 02/24/1994 Oral Poliovirus Immunization 24249 Given 02/24/1994 DTP Immunization 08313 Given 02/24/1994 Hib 4 Dose, Acthib 89143 Given 1993 Oral Poliovirus Immunization 61256 Given 1993 DTP Immunization 61304 Given 1993 Hib 4 Dose, Acthib 02141 Given 1993 Hep B Immunization, Ped/Adolescent To 11 Yrs 67089 Given 1993 Hep B Immunization, Ped/Adolescent To 11 Yrs Vital Signs Date Vital Result Comment 12/28/2018 1:40pm BP Systolic 124 mmHg BP Diastolic 80 mmHg Weight 240.00 lb 08/30/2018 11:00am BP Systolic 120 mmHg BP Diastolic 72 mmHg Weight 251.00 lb on 08/20/18 Results Test Acquired Facility Test Result H/L Range Note Date Laboratory test 09/20/2018 On License Of [facility]. HIV 1/2 Non-Reactive 1, 2 finding LABORATORY Rapid [phone] Urine Culture And 07/27/2018 [facility] Urine SEE RESULT 3, 4 Sensitivities [phone] Culture BELOW Laboratory test 07/27/2018 [facility] Poc Negative Negative 5 finding [phone] , Urine Poc Urinalysis 07/27/2018 [facility] Poc Negative Negative [phone] Glucose, Urine Poc Bilirubin, Urine Negative Negative Poc Ketone, Urine Negative Negative Poc Specific [place], Urine 1.020 Normal 1.010-1.030 Poc Blood, Urine Trace-intact Abnormal Negative Poc pH, Urine 7.5 Normal 5-9 Poc Protein, Urine Negative Negative Poc Urobilinogen, Urine 0.2 Negative Poc Nitrite, Urine Negative Negative Poc Leukocytes, Urine 1+ Abnormal Negative Poc Color, Urine Yellow Poc Clarity, Urine Slightly Cloudy 6 1 OD 2 NOTE: A NON-REACTIVE RESULT INDICATES THAT HIV 1/2 ANTIBODIES HAVE NOT BEEN FOUND IN THIS PATIENT SPECIMEN. A NON-REACTIVE RESULT, HOWEVER, DOES NOT PRECLUDE PREVIOUS EXPOSURE OF INFECTION WITH HIV 1/2. Method: Uni-Gold Recombigen HIV 1/2 Rapid Immunoassay BigTwist * [place] STATE LAW PROHIBITS THE REDISCLOSURE OF THIS RESULT * * TO ANY UNAUTHORIZED REPUBLICAN. * 3 [id number] 4 SEE RESULT BELOW Name: MADY PENA : [address]: Bulmaro Lobato MD Acct: [id number] Unit: [id number] AGE: 22 Location: [facility] Re07/27/18 SEX: F Status: DEP ER SPEC: [id number] TOMÁS: 07/27/18-1221 [facility] DR: Bulmaro Lobato MD REQ: [id number] RECD: 07/27/18 STATUS: RASHEL VERDIN DR: Hector Moses DO _ SOURCE: URINE SPDESC: ORDERED: Urine Culture COMMENTS: [id number] Procedure Result Reported Site Urine Culture Final 07/28/18- 1606 ML No growth of clinically significant organisms * ML - Main Lab . END OF REPORT DEPARTMENT OF PATHOLOGY, [address] [place] [address] Angus Pisano M.D. Director [facility] # [id number] 5 Bed Rubber: [id number] Test Disclaimer: Positive bacteria, red blood cells, white blood cells, early , low specific gravity, and other factors may cause false positive or negative results. It is recommended to retest unexpected results within 24 to 72 hours with a serum test when applicable. If is still suspected, please repeat test after 48 to 72 hours. 6 Bed Rubber: [id number] Procedures Date Code Description Status 08/30/2018 61776 Omt 3 To 4 Body Regions Involved Completed 08/30/2018 56525 Brief Emotional/Behav Assessment W/ Scoring Doc Per Completed Standard Inst Medical Devices Description No Information Available Encounters Type Date Location Provider Dx Diagnosis Office Visit 08/30/2018 Main Office Hector Moses, F41.1 Generalized anxiety 10:45a D.O. disorder F43.23 Adjustment disorder with mixed anxiety and depressed mood M54.5 Low back pain M99.03 Segmental and somatic dysfunction of lumbar region M99.05 Segmental and somatic dysfunction of pelvic region M99.04 Segmental and somatic dysfunction of sacral region M99.06 Segmental and somatic dysfunction of lower extremity Z13.31 Encounter for screening for depression Office Visit 08/20/2018 9:40a Main Office Macarena Renteria Z02.89 Encounter for other P.Marylu administrative examinations Z11.1 Encounter for screening for respiratory tuberculosis Z68.37 Body mass index (BMI) 37.0-37.9, adult Assessments Date Code Description Provider 08/30/2018 F41.1 Generalized anxiety disorder Hector Moses DGarciaOGarcia 08/30/2018 F43.23 Adjustment disorder with mixed anxiety and Hector Moses D.O. depressed mood 08/30/2018 M54.5 Low back pain Hector Moses D.O. 08/30/2018 M99.03 Segmental and somatic dysfunction of lumbar Hector Moses D.O. region 08/30/2018 M99.05 Segmental and somatic dysfunction of pelvic Hector Moses D.O. region 08/30/2018 M99.04 Segmental and somatic dysfunction of sacral Hector Moses D.O. region 08/30/2018 M99.06 Segmental and somatic dysfunction of lower SopHector ellington D.O. extremity 08/30/2018 Z13.31 Encounter for screening for depression Hector Moses D.OGarcia 08/20/2018 Z02.89 Encounter for other administrative Delmi Villa examinations 08/20/2018 Z11.1 Encounter for screening for respiratory Delmi Villa tuberculosis 08/20/2018 Z68.37 Body mass index (BMI) 37.0-37.9, adult Delmi Villa Plan of Treatment 08/30/2018 - Hector Moses D.OGarciaF41.1 Generalized anxiety disorderFollow up:6 weeks recheck anxiety/depression with GAD7 and AVX8T49.23 Adjustment disorder with mixed anxiety and depressed moodM54.5 Low back painM99.03 Segmental and somatic dysfunction of lumbar bybdsbN77.05 Segmental and somatic dysfunction of pelvic begoqvK49.04 Segmental and somatic dysfunction of sacral nkkucrK64.06 Segmental and somatic dysfunction of lower famueutqiC73.31 Encounter for screening for depression Functional Status Description No Information Available Mental Status Description No Information Available Referrals Description No Information Available
--- OUTSIDE RECORDS SUMMARY | 2019-01-19 11:05 | XMS REPORT | Continuity of Care Document ---
:1995 External Reference #:[id number] Author Name Leatha Espinosa, [facility] Address [address] [place] [phone] Care Team Providers Name Role Phone Hector Moses Care Team Information Sports Doctor [phone] Problems Description No Information Available Social History Type Date Description Comments Sex Unknown Tobacco Use Start: Unknown Light tobacco smoker (10 or fewer cigarettes/day) ETOH Use Never used alcohol Recreational Drug Use Never Used Drugs Tobacco Use Start: Unknown Light tobacco smoker (10 or fewer cigarettes/day) Smoking Status Reviewed: 11/12/18 Light tobacco smoker (10 or fewer cigarettes/day) Allergies, Adverse Reactions, Alerts Description No Known Drug Allergies Medications Active Medications SIG Qnty Indications Ordering Provider Date Hydrocodone-Acetamino 1 tab by mouth 10tabs S62.326S Ana Luisa Stevens MD phen every 6 hours as 5-325mg Tablets needed for pain Buspirone HCL 1 tab by mouth Unknown 15mg three a day Tablets Lexapro 1 by mouth every Unknown 20mg Tablets day Immunizations Description No Information Available Vital Signs Date Vital Result Comment 12/06/2018 8:31am BP Systolic 109 mmHg BP Diastolic 77 mmHg Body Temperature 97.4 F Heart Rate 95 /min Height 67 inches 5'7" Weight 240.00 lb BMI (Body Mass Index) 37.6 kg/m2 BSA (Body Surface Area) 2.19 m2 [place] body weight in kilograms 61 kg O2 % BldC Oximetry 97 % 11/25/2018 8:46am BP Systolic 112 mmHg BP Diastolic 63 mmHg Body Temperature 98.2 F Heart Rate 64 /min Height 67 inches 5'7" Weight 243.00 lb BMI (Body Mass Index) 38.1 kg/m2 BSA (Body Surface Area) 2.20 m2 [place] body weight in kilograms 61 kg O2 % BldC Oximetry 96 % Results Test Date Facility Test Result H/L Range Note Xray 12/06/2018 [facility] - Orthopedic RMP, Hand, RT, < pending> [address] Complete (min 3 [place] [address] view) [phone] Procedures Date Code Description Status 12/06/2018 04537 Radiology, Hand: Minimum Three Views Completed 12/06/2018 68491 Apply Cast Gauntlet Completed 11/25/2018 84934 Radiology, Hand: Minimum Three Views Completed 11/18/2018 31323 Radiology, Hand: Minimum Three Views Completed 11/12/2018 03159 Radiology, Hand: Minimum Three Views Completed 11/09/2018 62724 Radiology, Hand: Minimum Three Views Completed 11/09/2018 43590 FX Metacarpal closed single w/o manipulation Completed Medical Devices Description No Information Available Encounters Type Date Location Provider Dx Diagnosis Office Visit 11/09/2018 Orthopaedic Office EspinosaLeatha llamas S62.326A Disp fx of shaft 10:45a S., RPAC of fifth metacarpal bone, right hand, init W22.8xxA Striking against or struck by other objects, init encntr Assessments Date Code Description Provider 12/06/2018 S62.326S Displaced fracture of shaft of fifth Leatha Espinosa S. , RPAC metacarpal bone, right hand, sequela 11/25/2018 S62.326D Displaced fracture of shaft of fifth Leatha Espinosa S. , RPAC metacarpal bone, right hand, subsequent encounter for fracture with routine healing 11/25/2018 S62.326S Disp fx of shaft of fifth MC bone, right Leatha Espinosa S., RPAC hand, sequela 11/18/2018 S62.326D Displaced fracture of shaft of fifth Leatha Espinosa S. , RPAC metacarpal bone, right hand, subsequent encounter for fracture with routine healing 11/18/2018 S62.326S Disp fx of shaft of fifth MC bone, right Blade Nevarez , DO hand, sequela 11/12/2018 S62.326D Displaced fracture of shaft of fifth Blade Nevarez, DO metacarpal bone, right hand, subsequent encounter for fracture with routine healing 11/09/2018 S62.326A Displaced fracture of shaft of fifth Leatha Espinosa RPAC metacarpal bone, right hand, initial encounter for closed fracture 11/09/2018 W22.8xxA Striking against or struck by other Leatha Espinosa RPAC objects, initial encounter Plan of Treatment Future Appointment(s):12/28/2018 9:00 am - Leatha Espinosa RPAC at [facility] [place]12/06/2018 - [facility] Displaced fracture of shaft of fifth metacarpal bone, right hand, sequela Functional Status Description No Information Available Mental Status Description No Information Available Referrals Description No Information Available
--- OUTSIDE RECORDS SUMMARY | 2019-01-19 11:05 | XMS REPORT | Continuity of Care Document ---
:1995 External Reference #:[id number] Author Name Leatha Espinosa, [facility] Address [address] [place] [phone] Care Team Providers Name Role Phone Hector Moses Care Team Information Website Developer [phone] Problems Description No Information Available Social History [...] Medications SIG Qnty Indications Ordering Provider Date Buspirone HCL 1 tab by mouth Unknown 15mg Tablets three a day Lexapro 1 by mouth every Unknown 20mg Tablets day History Medications Hydrocodone-Acetaminophen 1 tab by 10tabs S62.326S Hilda 11/09/2018 - 5-325mg Tablets mouth every MD Ana Luisa 12/28/2018 6 hours as needed for pain Immunizations Description No Information Available Vital Signs Date Vital Result Comment 12/28/2018 9:09am BP Systolic 137 mmHg BP Diastolic 95 mmHg Body Temperature 96.8 F Heart Rate 100 /min Height 67 inches 5'7" Weight 240.00 lb BMI (Body Mass Index) 37.6 kg/m2 BSA (Body Surface Area) 2.19 m2 [place] body weight in kilograms 61 kg O2 % BldC Oximetry 99 % 12/06/2018 8:31am BP Systolic 109 mmHg BP Diastolic 77 mmHg Body Temperature 97.4 F Heart Rate 95 /min Height 67 inches 5'7" Weight 240.00 lb BMI (Body Mass Index) 37.6 kg/m2 BSA (Body Surface Area) 2.19 m2 [place] body weight in kilograms 61 kg O2 % BldC Oximetry 97 % Results Test Date Facility Test Result H/L Range Note Xray 12/28/2018 [facility] - Orthopedic RMP, Hand, RT, < pending> [address] Complete (min 3 [place] [address] view) [phone] Order 12/28/2018 DeRoyal Boxer FX Deroyal <pending> [address] [place] [address] [place] RT [phone] Procedures Date Code Description Status 12/28/2018 04423 Radiology, Hand: Minimum Three Views Completed 12/06/2018 08425 Radiology, Hand: Minimum Three Views Completed 12/06/2018 45179 Apply Cast Gauntlet Completed 11/25/2018 17307 Radiology, Hand: Minimum Three Views Completed 11/18/2018 49779 Radiology, Hand: Minimum Three Views Completed 11/12/2018 33123 Radiology, Hand: Minimum Three Views Completed 11/09/2018 00031 Radiology, Hand: Minimum Three Views Completed 11/09/2018 87681 FX Metacarpal closed single w/o manipulation Completed Medical Devices Description No Information Available Encounters Type Date Location Provider Dx Diagnosis Office Visit 11/09/2018 Orthopaedic Office Leatha Espinosa S62.326A Disp fx of shaft 10:45a S., RPAC of fifth metacarpal bone, right hand, init W22.8xxA Striking against or struck by other objects, init encntr Assessments Date Code Description Provider 12/28/2018 S62.326S Displaced fracture of shaft of fifth Leatha Espinosa , RPAC metacarpal bone, right hand, sequela 12/06/2018 S62.326D Displaced fracture of shaft of fifth Leatha Espinosa , RPAC metacarpal bone, right hand, subsequent encounter for fracture with routine healing 12/06/2018 S62.326S Disp fx of shaft of fifth MC bone, right Leatha Espinosa, RPAC hand, sequela 11/25/2018 S62.326D Displaced fracture of shaft of fifth Leatha Espinosa , RPAC metacarpal bone, right hand, subsequent encounter for fracture with routine healing 11/25/2018 S62.326S Disp fx of shaft of fifth MC bone, right Leatha Espinosa, JENSEN hand, sequela 11/18/2018 S62.326D Displaced fracture of shaft of fifth Leatha Espinosa , [facility] metacarpal bone, right hand, subsequent encounter for fracture with routine healing 11/18/2018 S62.326S Disp fx of shaft of fifth MC bone, right RoqueBlade E. , DO hand, sequela 11/12/2018 S62.326D Displaced fracture of shaft of fifth Roque, Blade E., DO metacarpal bone, right hand, subsequent encounter for fracture with routine healing 11/09/2018 S62.326A Displaced fracture of shaft of fifth Leatha Espinosa , [facility] metacarpal bone, right hand, initial encounter for closed fracture 11/09/2018 W22.8xxA Striking against or struck by other Leatha Espinosa RPAC objects, initial encounter Plan of Treatment Future Appointment(s):01/18/2019 9:00 am - Leatha Espinosa RPAC at [facility]rf9912/28/2018 [facility] Displaced fracture of shaft of fifth metacarpal bone, right hand, sequela Functional Status Description No Information Available Mental Status Description No Information Available Referrals Description No Information Available
--- OUTSIDE RECORDS SUMMARY | 2019-01-19 11:05 | XMS REPORT | Continuity of Care Document ---
:1995 External Reference #:[id number] Author Name Hector Moses D.O. 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 Problems Active Problems Provider Date Acne [...] Fluconazole 2 tabs on day 1 15tabs B35.4 Hector Moses, 12/28/2018 200mg Tablets the 1 [...] CPT Code Status Date Vaccine Lot # [id number] Given 11/27/2017 Influenza Virus Vaccine, Quadrivalent, Split, [id number] Preservative Free 01887 Given 03/20/2017 Influenza Virus Vaccine, Quadrivalent, Split, Preservative Free 40115 Given 04/24/2016 Gardasil 9 HPV vaccine; Nonavalent 3 [place] [id number] [place] [address] Given 11/14/2015 Gardasil 9 HPV vaccine; Nonavalent 3 [place] [id number] [place] [address] Given 07/07/2015 Adacel or Boostrix, TDaP [id number] 53471 Given 07/07/2015 Gardasil 9 HPV vaccine; Nonavalent 3 [id number] [address] Given 01/18/2014 Influenza Virus Vaccine, Quadrivalent, Split, [id number] Preservative Free 80334 Given 03/14/2013 Flu, Split Virus 3Yrs [id number] 24717 Given 07/25/2009 Menactra Menningitis Vaccine 75993 Given 10/29/1998 Poliomyelitis Immunization 66332 Given 10/29/1998 MMR Virus Immunization 33023 Given 10/29/1998 DTP Immunization 14981 Given 07/16/1995 MMR Virus Immunization 29274 Given 07/16/1995 Oral Poliovirus Immunization 41993 Given 07/16/1995 DTP-Hib (Tetramune) 81501 Given 07/29/1994 Hep B Immunization, Ped/Adolescent To 11 Yrs 17185 Given 05/05/1994 DTP Immunization 07465 Given 05/05/1994 Hib 4 Dose, Acthib 65057 Given 02/24/1994 Oral Poliovirus Immunization 62103 Given 02/24/1994 DTP Immunization 44362 Given 02/24/1994 Hib 4 Dose, Acthib 01208 Given 1993 Oral Poliovirus Immunization 00409 Given 1993 DTP Immunization 77808 Given 1993 Hib 4 Dose, Acthib 98195 Given 1993 Hep B Immunization, Ped/Adolescent To 11 Yrs 62592 Given 1993 Hep B Immunization, Ped/Adolescent To 11 Yrs Vital Signs Date Vital Result Comment 12/28/2018 1:40pm BP Systolic 124 mmHg BP Diastolic 80 mmHg Weight 240.00 lb 08/30/2018 11:00am BP Systolic 120 mmHg BP Diastolic 72 mmHg Weight 251.00 lb on 08/20/18 Results Test Acquired Facility Test Result H/L Range Note Date Laboratory test 09/20/2018 [facility] HIV 1/2 Non-Reactive 1, 2 finding LABORATORY Rapid [phone] Urine Culture And 07/27/2018 [facility] Urine SEE RESULT 3, 4 Sensitivities [phone] Culture BELOW Laboratory test 07/27/2018 [facility] Poc Negative Negative 5 finding [phone] , Urine Poc Urinalysis 07/27/2018 [facility] Poc Negative Negative [phone] Glucose, Urine Poc Bilirubin, Urine Negative Negative Poc Ketone, Urine Negative Negative Poc Specific [place], Urine 1.020 Normal 1.010-1.030 Poc Blood, Urine [...] Method: Uni-Gold Recombigen HIV 1/2 Rapid Immunoassay Epos * [place] STATE LAW PROHIBITS THE REDISCLOSURE OF THIS RESULT * * TO ANY UNAUTHORIZED REPUBLICAN. * 3 [id number] 4 SEE RESULT BELOW Name: MADY PENA : [address]: Bulmaro Lobato MD Acct: [id number] Unit: [id number] AGE: 22 Location: [facility] Re07/27/18 SEX: F Status: DEP ER SPEC: [id number] TOMÁS: 07/27/18-1221 [facility] DR: Bulmaro Lobato MD REQ: [id number] RECD: 07/27/18 STATUS: RASHEL VERDIN DR: Hector Moses DO _ SOURCE: URINE SPDESC: ORDERED: Urine Culture COMMENTS: [id number] Procedure Result Reported Site Urine Culture Final 07/28/18- 1606 ML No growth of clinically significant organisms * ML - Main Lab . END OF REPORT DEPARTMENT OF PATHOLOGY, [address] [place] [address] Angus Pisano M.D. Director [facility] # [id number] 5 Electric Crane Operator: [id number] Test Disclaimer: Positive bacteria, red blood cells, white blood cells, early , low specific gravity, and other factors may cause false positive or negative results. It is recommended to retest unexpected results within 24 to 72 hours with a serum test when applicable. If is still suspected, please repeat test after 48 to 72 hours. 6 Electric Crane Operator: [id number] Procedures Date Code Description Status 08/30/2018 42556 Omt 3 To 4 Body Regions Involved Completed 08/30/2018 39732 Brief Emotional/Behav Assessment W/ Scoring Doc Per [...] Office Macarena Renteria Z02.89 Encounter for other P.A. administrative examinations Z11.1 Encounter for screening for respiratory tuberculosis Z68.37 Body mass index (BMI) 37.0-37.9, adult Assessments Date Code Description Provider 12/28/2018 B35.4 Tinea corporis Hector Moses D.OGarcia 12/28/2018 L40.0 Psoriasis vulgaris Hector Moses D.OGarcia 08/30/2018 F41.1 Generalized anxiety disorder Hector Moses D.OGarcia 08/30/2018 F43.23 Adjustment disorder with mixed anxiety and Hector Moses D.O. depressed mood 08/30/2018 M54.5 Low back pain Hector Moses D.OGarcia 08/30/2018 M99.03 Segmental and somatic dysfunction of lumbar SopluiskHector D.O. region 08/30/2018 M99.05 Segmental and somatic dysfunction of pelvic SopHector ellington D.O. region 08/30/2018 M99.04 Segmental and somatic dysfunction of sacral SopchakHector D.O. region 08/30/2018 M99.06 Segmental and somatic dysfunction of lower SopchakHector D.O. extremity 08/30/2018 Z13.31 Encounter for screening for depression Hector Moses D.OGarcia 08/20/2018 Z02.89 Encounter for other administrative Delmi Villa examinations 08/20/2018 Z11.1 Encounter for screening for respiratory Delmi Villa tuberculosis 08/20/2018 Z68.37 Body mass index (BMI) 37.0-37.9, adult Delmi Villa Plan of Treatment 12/28/2018 - Hector Moses D.OGarciaB35.4 Tinea corporisNew Medication:Fluconazole 200 mg - 2 tabs on day 1 the 1 tab daily for 2 weeks.L40.0 Psoriasis vulgarisComments:May be new presentation of psoriasis. Discussed referral to Derm if there is no response to fluconazole. Functional Status Description No Information Available Mental Status Description No Information Available Referrals Description No Information Available
--- OUTSIDE RECORDS SUMMARY | 2019-01-19 11:05 | XMS REPORT | Continuity of Care Document ---
:1995 External Reference #:[id number] Author Name Rocío Rodriguez PA (transmitted by agent of provider Oneil Hook) Address [address] [place] [address], [facility] [address] [place] [address] Care Team Providers Name Role Phone HCP given Care Team Information Invasive Physician Unavailable Problems Active Problems Provider Date Acne Hector Moses D.O. Onset: 10/26/2014 Adjustment disorder with mixed emotional Rocío Rodriguez PA Onset: 12/27/2015 features Shoulder joint pain Hector Moses D.O. Onset: 02/08/2016 Malaise and fatigue Hector Moses D.O. Onset: 06/10/2016 Generalized anxiety disorder Hector Moses D.O. Onset: 11/27/2017 Psoriasis Rocío Rodriguez PA Onset: 01/04/2019 Social History Type Date Description Comments Sex [...] Medications SIG Qnty Indications Ordering Date Provider Tobramycin 5 drop both eyes 10ml H10.9 Oneil Hook, 01/04/2019 0.3% Solution four times a day M.D. x7 days Clobetasol Propionate apply small 60gm L40.0 Oneil Hook, 01/04/2019 E amount to M.D. 0.05% Cream affected areas (external only) twice daily as needed Fluconazole 2 tabs on day 1 15tabs B35.4 Hector Moses, 12/28/2018 200mg Tablets the 1 tab daily D.O. for 2 weeks. Amitriptyline HCL 1 by mouth every 90tabs F41.1 KelsieluisHector jade, 04/15/2018 10mg night at bedtime D.O. Tablets Buspirone HCL take 1 tablet by 270tabs F43.23 KelsiechandanaHector, 07/10/2016 15mg mouth three D.O. Tablets times daily for anxiety F41.1 Escitalopram Oxalate 1 by mouth every 90tabs F43.23 Adina Moseson, 2016 20mg day D.O. Tablets F41.1 Medications Administered in Office Medication SIG Qnty Indications Ordering Provider Date TB Intradermal Test Delmi Villa 08/20/2018 Injection TB Intradermal Test Hector Moses, D.O. 03/14/2013 Injection Immunizations CPT Code Status Date Vaccine Lot # [id number] Given 12/28/2018 Influenza Virus Vaccine, Quadrivalent, Split, [id number] Preservative Free 13515 Given 11/27/2017 Influenza Virus Vaccine, Quadrivalent, Split, [id number] Preservative Free 18927 Given 03/20/2017 Influenza Virus Vaccine, Quadrivalent, Split, Preservative Free 06666 Given 04/24/2016 Gardasil 9 HPV vaccine; Nonavalent 3 [place] [id number] [address] Given 11/14/2015 Gardasil 9 HPV vaccine; Nonavalent 3 [place] [id number] [place] [address] Given 07/07/2015 Adacel or Boostrix, TDaP [id number] 19304 Given 07/07/2015 Gardasil 9 HPV vaccine; Nonavalent 3 D[place] [id number] [place] [address] Given 01/18/2014 Influenza Virus Vaccine, Quadrivalent, Split, [id number] Preservative Free 52654 Given 03/14/2013 Flu, Split Virus 3Yrs [id number] 53979 Given 07/25/2009 Menactra Menningitis Vaccine 92323 Given 10/29/1998 Poliomyelitis Immunization 86375 Given 10/29/1998 MMR Virus Immunization 12441 Given 10/29/1998 DTP Immunization 15878 Given 07/16/1995 MMR Virus Immunization 19112 Given 07/16/1995 Oral Poliovirus Immunization 03800 Given 07/16/1995 DTP-Hib (Tetramune) 80542 Given 07/29/1994 Hep B Immunization, Ped/Adolescent To 11 Yrs 58179 Given 05/05/1994 DTP Immunization 33751 Given 05/05/1994 Hib 4 Dose, Acthib 00441 Given 02/24/1994 Oral Poliovirus Immunization 67317 Given 02/24/1994 DTP Immunization 50491 Given 02/24/1994 Hib 4 Dose, Acthib 59676 Given 1993 Oral Poliovirus Immunization 62958 Given 1993 DTP Immunization 42662 Given 1993 Hib 4 Dose, Acthib 37155 Given 1993 Hep B Immunization, Ped/Adolescent To 11 Yrs 44179 Given 1993 Hep B Immunization, Ped/Adolescent To 11 Yrs Vital Signs Date Vital Result Comment 01/04/2019 4:13pm BP Systolic 120 mmHg BP Diastolic 78 mmHg Body Temperature 97.8 F Left Visual Acuity Near 20/25 12/28/2018 1:40pm BP Systolic 124 mmHg BP Diastolic 80 mmHg Weight 240.00 lb Results Test Acquired Facility Test Result H/L Range Note Date Laboratory test 09/[facility] HIV 1/2 Non-Reactive 1, 2 finding LABORATORY Rapid [phone] Urine Culture And 07/27/2018 [facility] Urine SEE RESULT 3, 4 Sensitivities [phone] Culture BELOW Laboratory test 07/27/2018 [facility] Poc Negative Negative 5 finding [phone] , Urine Poc Urinalysis 07/27/2018 [facility] Poc Negative Negative [phone] Glucose, Urine Poc Bilirubin, Urine Negative Negative Poc Ketone, Urine Negative Negative Poc Specific [place], Urine 1.020 Normal 1.010-1.030 Poc Blood, Urine [...] Method: Uni-Gold Recombigen HIV 1/2 Rapid Immunoassay Invoca * [place] STATE LAW PROHIBITS THE REDISCLOSURE OF THIS RESULT * * TO ANY UNAUTHORIZED REPUBLICAN. * 3 [id number] 4 SEE RESULT BELOW Name: MADY PENA : [address]: Bulmaro Lobato MD Acct: [id number] Unit: [id number] AGE: 22 Location: [facility] Re07/27/18 SEX: F Status: DEP ER SPEC: [id number] TOMÁS: 07/27/18-1221 [facility] DR: Bulmaro Lobato MD REQ: [id number] RECD: 07/27/18 STATUS: COMP [facility] DR: Hector Moses DO _ SOURCE: URINE [facility]: ORDERED: Urine Culture COMMENTS: [id number] Procedure Result Reported Site Urine Culture Final 07/28/18- 1606 ML No growth of clinically significant organisms * ML - Main Lab . END OF REPORT DEPARTMENT OF PATHOLOGY, [address] [place] [address] Angus Pisano M.D. Director [facility] # [id number] 5 Leasing Machine Tender: [id number] Test Disclaimer: Positive bacteria, red blood cells, white blood cells, early , low specific gravity, and other factors may cause false positive or negative results. It is recommended to retest unexpected results within 24 to 72 hours with a serum test when applicable. If is still suspected, please repeat test after 48 to 72 hours. 6 Leasing Machine Tender: [id number] Procedures Date Code Description Status 08/30/2018 99090 Omt 3 To 4 Body Regions Involved Completed 08/30/2018 73750 Brief Emotional/Behav Assessment W/ Scoring Doc Per Completed Standard Inst Medical Devices Description No Information Available Encounters Type Date Location Provider Dx Diagnosis Office Visit 01/04/2019 Main Office Rocío Rodriguez PA H10.9 Unspecified 4:10p conjunctivitis L40.0 Psoriasis vulgaris Office Visit 12/28/2018 1:45p Main Office Hector Moses D.O. B35.4 Tinea corporis L40.0 Psoriasis vulgaris Z23 Encounter for immunization Office Visit 08/30/2018 10:45a Main Office Hector Moses, F41.1 Generalized anxiety [...] 37.0-37.9, adult Assessments Date Code Description Provider 01/04/2019 H10.9 Unspecified conjunctivitis Rocío Rodriguez PA 01/04/2019 L40.0 Psoriasis vulgaris Rocío Rodriguez PA 12/28/2018 B35.4 Tinea corporis Hector Moses D.O. 12/28/2018 L40.0 Psoriasis vulgaris Hector Moses D.O. 12/28/2018 Z23 Encounter for immunization Hector Moses D.O. 08/30/2018 F41.1 Generalized anxiety disorder Hector Moses D.O. 08/30/2018 F43.23 Adjustment disorder with mixed anxiety [...] M99.06 Segmental and somatic dysfunction of lower Hector Moses D.O. extremity 08/30/2018 Z13.31 Encounter for screening for depression Hector Moses D.O. 08/20/2018 Z02.89 Encounter for other administrative Delmi Villa examinations 08/20/2018 Z11.1 Encounter for screening for respiratory Delmi Villa tuberculosis 08/20/2018 Z68.37 Body mass index (BMI) 37.0-37.9, adult Delmi Villa Plan of Treatment 01/04/2019 - Rocío Rodriguez PAH10.9 Unspecified conjunctivitisNew Medication: Tobramycin 0.3 % - 5 drop both eyes four times a day x7 daysComments:Rx for tobramycin eye drops. Discussed hygiene to avoid transmission. Recheck if sx not improving.L40.0 Psoriasis vulgarisNew Medication:Clobetasol Propionate E 0.05 % - apply small amount to affected areas (external only) twice daily asneededComments:Significant plaque psoriasis. Refer to dermatology for management and consideration of biologic medications. Rx for clobetasol cream to use in the meantime.Referral:[facility] [place], Dermatology/Pediatric/ Phy Functional Status Description No Information Available Mental Status Description No Information Available Referrals Refer to Reason for Referral Status Appt Date [facility] [place] psoriasis Consult and Treat Sent [address] [place] [address] [phone]
--- OUTSIDE RECORDS SUMMARY | 2019-01-19 11:06 | XMS REPORT | Continuity of Care Document ---
:1995 External Reference #:[id number] Author Name Leatha Espinosa, [facility] Address [address] [place] [id number] Care Team Providers Name Role Phone Hector Moses Care Team Information Scrummaster [phone] Problems Description No Information Available Social History [...] Date Hydrocodone-Acetamino 1 tab by mouth 10tabs Ana Luisa Stevens MD 11/09/2018 phen every 6 hours as 5-325mg Tablets needed for pain Buspirone HCL 1 tab by mouth Unknown 15mg three a day Tablets Lexapro 1 by mouth every Unknown 20mg Tablets day Immunizations Description No Information Available Vital Signs Date Vital Result Comment 11/25/2018 8:46am BP Systolic 112 mmHg BP Diastolic 63 mmHg Body Temperature 98.2 F Heart Rate 64 /min Height 67 inches 5'7" Weight 243.00 lb BMI (Body Mass Index) 38.1 kg/m2 BSA (Body Surface Area) 2.20 m2 [place] body weight in kilograms 61 kg O2 % BldC Oximetry 96 % 11/18/2018 9:16am BP Systolic 117 mmHg BP Diastolic 74 mmHg Body Temperature 98.1 F Heart Rate 83 /min Height 67 inches 5'7" Weight 239.00 lb BMI (Body Mass Index) 37.4 kg/m2 BSA (Body Surface Area) 2.18 m2 [place] body weight in kilograms 61 kg O2 % BldC Oximetry 96 % Results Description No Information Available Procedures Date Code Description Status 11/18/2018 57736 Radiology, Hand: Minimum Three Views Completed 11/12/2018 29973 Radiology, Hand: Minimum Three Views Completed 11/09/2018 18934 Radiology, Hand: Minimum Three Views Completed 11/09/2018 83440 Apply Cast Gauntlet Completed 11/09/2018 62011 FX Metacarpal closed single w/o manipulation Completed Medical Devices Description No Information Available Encounters Description No Information Available Assessments Date Code Description Provider 11/25/2018 S62.326S Displaced fracture of shaft of fifth Leatha Espinosa. , RPAC metacarpal bone, right hand, sequela 11/18/2018 S62.326S Disp fx of shaft of fifth MC bone, right RoqueBlade. , DO hand, sequela 11/18/2018 S62.326S Displaced fracture of shaft of fifth EspinosaLeatha. , RPAC metacarpal bone, right hand, sequela 11/12/2018 S62.326S Displaced fracture of shaft of fifth RoqueBlade., DO metacarpal bone, right hand, sequela 11/09/2018 S62.326A Displaced fracture of shaft of fifth Leatha Espinosa , RPAC metacarpal bone, right hand, initial encounter for closed fracture 11/09/2018 W22.8xxA Striking against or struck by other Leatha Espinosa RPAC objects, initial encounter Plan of Treatment Future Appointment(s):12/06/2018 8:30 am - Leatha Espinosa [facility] at [id number]/25/2018 - Leatha Espinosa RPA62.326S Displaced fracture of shaft of fifth metacarpal bone, right hand, sequelaNew Xrays:RMP, Hand, RT, Complete (min 3 view), Ordered: 11/25/18 Functional Status Description No Information Available Mental Status Description No Information Available Referrals Description No Information Available
[2019-01-19] MEDS ORDERED: Morphine 4 MG/ML VIAL (1 ml) 4 MG/ML VIAL IV ONE ×2 (12:06→15:29)
[2019-01-19] MEDS ORDERED: Ondansetron INJ* 2 MG/ML VIAL IV ONE (12:08)
--- NOTE | 2019-01-19 12:34 | ED ---
Abdominal Pain/Female - HPI Summary HPI Summary: This patient is an otherwise healthy 23-year-old obese female who presents to the ED with acute onset RLQ pain at 9:30 AM. Patient states she feels it may have been centered in the umbilicus at first and moves quickly to the RLQ. She denies any subjective fevers, however is endorsing sweats and chills. She denies any vomiting, however has been endorsing some nausea. Endorses anorexia since the incident and does not feel like eating. Symptoms are worse with sitting upright or lying flat, better with sitting in a position with no pressure to the RLQ abdomen. Denies any urinary symptoms, back pain, vaginal pain, discharge, chance of STDs or history of UTIs. No history of abdominal surgeries. No history of ovarian pathologies/cysts. She took an ibuprofen immediately when she first had the abdominal pain onset, however this has not improved her symptoms. She feels like she is unable to eat or drink anything. - History of Current Complaint Chief Complaint: EDAbdPain Stated Complaint: ABDOMINAL PAIN PER PT Time Seen by Provider: 01/19/19 11:52 Hx Obtained From: Patient Hx Last Menstrual Period: 09/07/18 ?: No Onset/Duration: Sudden Onset Timing: Constant Severity Initially: Moderate Severity Currently: Moderate Pain Intensity: 9 Pain Scale Used: 0-10 Numeric Location: Discrete At: RLQ Radiates: No Character: Sharp Aggravating Factor(s): Nothing Alleviating Factor(s): Nothing Associated Signs and Symptoms: Positive: Decreased Appetite, Nausea. Negative: Diaphoresis, Fever, Cough, Chest Pain, Blood in Stool, Urinary Symptoms, Vomiting, Diarrhea - Risk Factors Ectopic Risk Factor: Negative Ovarian Torsion Risk Factor: Reproductive Age Allergies/Adverse Reactions: Allergies Allergy/AdvReac Type Severity Reaction Status Date / Time No Known Allergies Allergy Verified 01/19/19 10:55 PMH/Surg Hx/FS Hx/Imm Hx Previously Healthy: Yes Endocrine/Hematology History: Denies: Hx Diabetes, Hx Thyroid Disease Cardiovascular History: Denies: Hx Hypertension, Hx Pacemaker/ICD Respiratory History: Denies: Hx Asthma, Hx Chronic Obstructive Pulmonary Disease (COPD) GI History: Denies: Hx Ulcer History: Denies: Hx Renal Disease Sensory History: Denies: Hx Hearing Aid Psychiatric History: Denies: Hx Panic Disorder - Surgical History Surgery Procedure, Year, and Place: denies - Immunization History Date of Tetanus Vaccine: utd Date of Influenza Vaccine: fall 2017 Hx Pertussis Vaccination: No Immunizations Up to Date: Yes Infectious Disease History: No Infectious Disease History: Denies: Hx Hepatitis, Hx Human Immunodeficiency Virus (HIV), Traveled Outside the [place] in Last 30 Days - Family History Known Family History: Positive: Diabetes - Social History Occupation: Employed Full-time Lives: Alone Alcohol Use: None Hx Substance Use: No Substance Use Type: Reports: None Hx Tobacco Use: Yes Smoking Status (MU): Light Every Day Tobacco Smoker Amount Used/How Often: 4 CIGS A DAY Length of Time of Smoking/Using Tobacco: 1 year Have You Smoked in the Last Year: Yes Review of Systems Negative: Fever, Chills, Fatigue, Skin Diaphoresis Negative: Epistaxis, Dental Pain Negative: Palpitations, Chest Pain Negative: Shortness Of Breath, Cough Positive: Abdominal Pain, Nausea. Negative: Vomiting, Diarrhea Genitourinary: Negative Positive: no symptoms reported, see HPI Negative: Arthralgia, Myalgia Skin: Negative All Other Systems Reviewed And Are Negative: Yes Physical Exam Triage Information Reviewed: Yes Vital Signs On Initial Exam: Initial Vitals Temp Pulse Resp BP Pulse Ox 97.2 F 79 16 136/100 99 01/19/19 10:51 01/19/19 10:51 01/19/19 10:51 01/19/19 10:51 01/19/19 10:51 Vital Signs Reviewed: Yes Appearance: Positive: Well-Appearing, Well-Nourished Skin: Positive: Warm, Skin Color Reflects Adequate Perfusion Head/Face: Positive: Normal Head/Face Inspection Eyes: Positive: EOMI, GERALD, Conjunctiva Clear Neck: Positive: Supple, No Lymphadenopathy Respiratory/Lung Sounds: Positive: Clear to Auscultation, Breath Sounds Present Cardiovascular: Positive: RRR, Pulses are Symmetrical in both Upper and Lower Extremities Abdomen Description: Positive: Other: - RLQ tenderness Musculoskeletal: Positive: Normal, Strength/ROM Intact Procedures - Sedation Patient Received Moderate/Deep Sedation with Procedure: No Diagnostics - Vital Signs Vital Signs Temp Pulse Resp BP Pulse Ox 01/19/19 10:51 97.2 F 79 16 136/100 99 - Laboratory Result Diagrams: 01/19/19 12:31 01/19/19 12:31 Lab Statement: Any lab studies that have been ordered have been reviewed, and results considered in the medical decision making process. Abdominal Pain Fem Course/Dx - Course Course Of Treatment: On arrival into the ED, the patient appears unwell, slightly diaphoretic but nontoxic in appearing. She appears to be in discomfort. On physical examination, no cervical LAD bilaterally, no conjunctival injection, EOMI/PERRLA, lungs CTA, RRR, abdominal pain on light palpation to the RLQ, no pain on palpation to the LLQ. Slight tenderness to the suprapubic region. No CVA tenderness bilaterally. Negative Aguilar sign. Positive obturators, positive psoas. Labs obtained: Unremarkable including CBC and CRP. Abdominal CTs/pelvis with IV contrast only: This showed no evidence of an acute appendicitis, however a 10 x 4 x 3 lobulated hyperenhancing mass in the left lobe of the liver. Correlation with MRI of the abdomen on a nonemergent basis is suggested. Diverticulosis without diverticulitis. Patient continues to have discomfort in this area, however it did improve with morphine. She continues to have pain to the RLQ on reexamination so a transvaginal ultrasound was obtained. TVUS shows no sonographic features of torsion. No ovarian cysts. There is a small amount of simple fluid within the cul-de-sac. Patient is reexamined and is feeling slightly better. Discussed with the patient that due to labs, T BUS and CT all negative for any acute findings, differential will include muscle strain as well as unspecified abd pain. Pt afebrile and appears well. Will given tramadol and zofran as rx. Patient will follow up with PCP and if symptoms worsen, she will return to the ED. Patient was given 2 L of LR, morphine, Zofran while in the ED. - Diagnoses Differential Diagnosis: Positive: Other - muscle strain, ovarian pathology, RLQ pain, unspecified abd pain, constipation Provider Diagnoses: Abdominal pain Is Visit Related: No Discharge ED - Sign-Out/Discharge Documenting (check all that apply): Patient Departure - Discharge Plan Condition: Stable Disposition: HOME Prescriptions: Ondansetron ODT TAB* [Zofran 4 MG Odt TAB*] 4 mg PO Q6H PRN #12 tab.odt MDD 4 PRN Reason: Nausea traMADol TAB* [Ultram*] 50 mg PO Q8H PRN #12 tab MDD 3 PRN Reason: Pain Patient Education Materials: Acute Abdominal Pain (ED) Forms: *Work Release Referrals: Hector Moses DO [Primary Care Provider] - Additional Instructions: Zofran up to 4 times daily as needed for nausea Tramadol 53 times daily as needed for abdominal pain You may also take Tylenol and ibuprofen in addition to this medication Use moist heat to the area for comfort Note given for work 2 days If he develop any worsening or changing symptoms, return to the ED - Billing Disposition and Condition Condition: STABLE Disposition: Home
[2019-01-19 12:49] LABS: ABS Basophils 0.1 10^3/ul (0-0.2); ABS Eosinophils 0.2 10^3/ul (0-0.6); ABS Lymphocytes 1.9 10^3/ul (1.0-4.8); ABS Monocytes 0.6 10^3/ul (0-0.8); ABS Neutrophils 8.1 10^3/ul (1.5-7.7); Eosinophil % 1.7 %; Hematocrit 39 % (35-47); Hemoglobin 13.2 g/dL (12.0-16.0); Lymphocyte % 17.1 %; Mean Corpuscular HGB Conc 34 g/dL (31-36); Mean Corpuscular Hemoglobin 29 pg (27-31); Mean Corpuscular Volume 85 fL (80-97); Mean Platelet Volume 8.8 fL (7.4-10.4); Nucleated Red Blood Cells % 0.1; Platelet Count 282 10^3/uL (150-450); Red Blood Count 4.55 10^6 /uL (3.70-4.87); Red Cell Distribution Width 16 % (10-15); White Blood Count 10.8 10^3/uL (3.5-10.8)
[2019-01-19] MEDS ORDERED: Lactated Ringers 1000 ML Bag* 1,000 ML IV ONE (13:00)
[2019-01-19 13:03] LABS: ALT 28 U/L (7-52); AST 17 U/L (13-39); Albumin 4.1 g/dL (3.2-5.2); Albumin/Globulin Ratio 1.2 (1-3); Alkaline Phosphatase 120 U/L (34-104); Anion Gap 7 mmol/L (2-11); BUN/Creatinine Ratio 13.8 (8-20); Blood Urea Nitrogen 12 mg/dL (6-24); CO2 Carbon Dioxide 28 mmol/L (22-32); Calcium 9.7 mg/dL (8.6-10.3); Chloride 103 mmol/L (101-111); EGFR Non-African American 79.3 (>60); Globulin 3.5 g/dL (2-4); Glucose 82 mg/dL (70-100); Potassium 3.6 mmol/L (3.5-5.0); Sodium 138 mmol/L (135-145); Total Protein 7.6 g/dL (6.4-8.9)
[2019-01-19 13:09] LABS: HCG Pregnancy < 0.60 mIU/mL
[2019-01-19] MEDS ORDERED: Iohexol 300* (CONTRAST) 10 ML SDV IV ONE (13:26)
[2019-01-19 14:58] LABS: Urine Appearance Clear; Urine Bacteria Absent (Absent); Urine Bilirubin Negative (Negative); Urine Blood Negative (Negative); Urine Color Yellow; Urine Glucose Negative (Negative); Urine Ketones Negative (Negative); Urine Nitrite Negative (Negative); Urine Protein Negative (Negative); Urine Red Blood Cell Absent (Absent); Urine Specific Gravity 1.049 (1.010-1.030); Urine Squamous Epithelial Cell Present (Absent); Urine Urobilinogen Negative (Negative); Urine White Blood Cell Trace(0-5/hpf) (Absent)
[2019-01-19 18:09] VITALS: BP 134/69
== END 2019-01-19 17:30 | disposition home or self-care (01) ==
LOC: ED 10:49
DX: R10.31 Right lower quadrant pain (principal); R11.0 Nausea; R16.0 Hepatomegaly, not elsewhere classified; F17.210 Nicotine dependence, cigarettes, uncomplicated
CPT/HCPCS: 36415; 74177; 76830; 80053; 81003; 81015; 83605; 83690; 83735; 84702; 85025; 86140; 87086; 96361; 96374; 96375; 96376; 99283; J2270; J2405; Q9967